=== PATIENT | female | born 1995 | race Caucasian/White ===

== ENCOUNTER → 2021-10-08 10:31 | Outpatient (CLI) | payer BC, SELFPAY ==
--- NOTE | 2021-10-08 | DI.RAD_ITS ---
Exam(s) XR TMJ BL EXAM: XR TMJ BL INDICATION: ABNL LUMP AT BASE OF LT SIDE TMJ, EVAL BONY ABNORMALITY. COMPARISON: No exams were available for comparison TECHNIQUE: 2D digital imaging was performed. Five views. FINDINGS: The exam was performed as a temporomandibular joint exam. This does not evaluate the submandibular r egion. There is no evidence of temporomandibular joint dislocation. There is normal range of motion . The teeth are unremarkable. No bony abnormalities are seen. IMPRESSION: Negative temporomandibular joints. DATA REPOSITORY: RADIATION DOSE DELIVERED:
== END ==
PROVIDERS: Visit Provider Physician Assistant Medical
DX: M26.69 Other specified disorders of temporomandibular joint (principal)
CPT/HCPCS: 70330

== ENCOUNTER 2021-10-08 18:33 | Outpatient (REF) | payer BC, SELFPAY | END 2021-10-08 18:34 | disposition home or self-care (01) | LOC: LBN 18:33 | PROVIDERS: Visit Provider Physician Assistant Medical ==

== ENCOUNTER 2021-12-22 19:54 | Outpatient (REF) | payer BC, SELFPAY | END 2021-12-22 19:55 | disposition home or self-care (01) | LOC: LBN 19:54 | PROVIDERS: Visit Provider Nurse Practitioner Family | DX: J02.9 Acute pharyngitis, unspecified (principal) | CPT/HCPCS: 87070 ==

== ENCOUNTER 2022-03-31 01:39 | Outpatient (CLI) | payer BC, SELFPAY ==
--- NOTE | 2022-03-31 07:45 | DI.US_ITS ---
Exam(s) US NEEDLE LOCAL OTHER WO RAD EXAM: US NEEDLE LOCAL OTHER WO RAD CLINICAL HISTORY: Left parotid mass,K11.8,ULTRASOUND GUIDED BX. COMPARISON: US US THYROID from 11/11/2021 TECHNIQUE: Ultrasound guidance was provided for ultrasound-guided biopsy of a left parotid gland mas s performed by the ENT surgeon.. Please see procedure report for details. Radiologist was not present for the study. FINDINGS: See procedure report for details. IMPRESSION: Ultrasound-guided localization for parotid gland mass. DATA REPOSITORY:
--- NOTE | 2022-03-31 11:28 | PAPNONF_PTH ---
PATIENT: Anastasia Roman LOC: [facility] U#:[id number] AGE/SX: 26/F ROOM: RE03/31/[address]: Yadiel Swanson MD : [id number] BED: DIS: 03/31/2022 SPEC #: [id number] RECD: 03/31/22 12:48 STATUS: [place] REQ #: [id number] YONI: 03/31/22 11:[address]: Yadiel Swanson [facility] Cytology RECD BY: Kena Gregory Tissues: 1 - BODY FLUID CYTO(NOT S/U/N/EM)[facility] Procedures: BODY FLUID CYTO(NOT SPU/UR/NIP/ENDOM)[facility] Comments: [id number] (PATH FNA CONSULT) (REFRIGERATED)
--- NOTE | 2022-03-31 12:01 | W.PROCNOTE ---
Date of service: 03/31/22 Time of Service: 12:01 Procedure Note Date of procedure: 03/31/22 Procedure: Ultrasound-guided FNA, left parotid mass, pathology present Surgeon/Proceduralist/Physician: Yadiel Swanson Procedure Diagnosis: Left parotid mass Procedure Indications: Patient with a left parotid mass discovered incidentally. Ultrasound most consistent with [place]'s versus pleomorphic adenoma. Options explained to the patient regarding further management. She elected to undergo FNA. Risks including bleeding infection, or damage to facial nerve were discussed. Consent was obtained. The below was then performed. Procedure Description: Ultrasound was used to localize a left-sided 2 cm parotid mass. The patient prepped and draped in appropriate fashion and 1% lidocaine with 1/100,000 epinephrine injected into the skin and subcutaneous tissues overlying the mass. A 25-gauge needle was then carefully introduced into the parotid mass, and multiple passes made through the parotid mass. Specimen was handed to pathology who reviewed it for cellular adequacy and felt that there was adequate cells and material to make the diagnosis. Wound was inspected for hemostasis and after ensuring adequate hemostasis, a sterile dressing was applied. The patient was allowed to sit and then stand and demonstrated no change in her vital signs and she was able to ambulate without difficulty. She will remove the bandage after 2 hours. She will call with any concerns or problems. She will call if she does not hear from me within 1 week. She had no further questions. She is comfortable with the plan.
== END 2022-03-31 01:59 ==
LOC: DI 01:40
PROVIDERS: Visit Provider Otolaryngology
DX: D11.0 Benign neoplasm of parotid gland (principal)
CPT/HCPCS: 10005; 76942; 88104

== ENCOUNTER 2022-10-28 03:45 | Outpatient (CLI) | payer BC, SELFPAY ==
[2022-10-28 13:42] LABS: HGB 13.6 g/dL (11.2-15.7); MCH 30.4 pg (27.0-33.0); MCHC 33.2 % (32.0-36.0); MCV 92 fL (80-95); MPV 9.6 fL (8.0-11.0); Platelet Count 254 10^3/uL (130-400); RBC 4.48 10^6/uL (3.93-5.22); RDW 11.4 % (11.7-14.6); RDW-SD 38.6 fL; WBC 4.84 10^3/uL (4.4-10.8)
[2022-10-28 15:49] LABS: ALT 16 U/L (14-59); AST 17 U/L (15-37); Albumin 4.2 g/dL (3.4-5.0); Alkaline Phosphatase 46 U/L (46-116); Anion Gap 6.5 mmol/L (3-11); BUN 17 mg/dL (7-18); Bilirubin, Total 0.7 mg/dL (0.2-1.0); CO2 28.5 mmol/L (21.0-32.0); CREATININE 0.8 mg/dL (0.55-1.02); Calcium 8.9 mg/dL (8.5-10.1); Calculated LDL 100 mg/dL (<100); Chloride 105 mmol/L (98-107); Cholesterol 154 mg/dL (<200); Estimated GFR 102.22 (mL/min/1.73m2); Glucose 120 mg/dL (74-106); HDL Cholesterol 42 mg/dL (40-60); Potassium 3.8 mmol/L (3.5-5.1); Sodium 140 mmol/L (136-145); TSH (W/Ref FT4) 1.07 uIU/mL (0.36-3.74); Total Protein 7.2 g/dL (6.4-8.2); Triglyceride 62 mg/dL (<150)
== END 2022-10-28 03:46 | disposition home or self-care (01) ==
LOC: LBO 03:46
PROVIDERS: Visit Provider Nurse Practitioner Women's Health
DX: Z01.419 Encounter for gynecological examination (general) (routine) without abnormal findings (principal); Z13.220 Encounter for screening for lipoid disorders; N92.6 Irregular menstruation, unspecified; R63.4 Abnormal weight loss
CPT/HCPCS: 36415; 80053; 80061; 85027; 84443

== ENCOUNTER 2024-01-05 18:02 | Outpatient (REF) | payer BC, SELFPAY ==
[2024-01-05 21:11] LABS: Abs Immature Grans 0.01 10^3/uL (0.0-0.06); Absolute Basophil Count 0.07 10^3/uL (0.0-0.2); Absolute Eosinophil Count 0.09 10^3/uL (0.0-0.7); Absolute Lymphocyte Count 2.46 10^3/uL (1.2-3.4); Absolute Monocyte Count 0.36 10^3/uL (0.1-0.8); Absolute Neutrophil Count 2.11 10^3/uL (1.2-6.7); Basophils % 1.4 %; Eosinophils % 1.8 %; HCT 39.8 % (36.0-46.0); HGB 13.8 g/dL (11.2-15.7); Immature Grans % 0.2 %; Lymphocytes % 48.2 %; MCH 31.2 pg (27.0-33.0); MCHC 34.7 % (32.0-36.0); MCV 90 fL (80-95); MPV 10.2 fL (8.0-11.0); Monocytes % 7.1 %; Neutrophils % 41.3 %; Platelet Count 251 10^3/uL (130-400); RBC 4.42 10^6/uL (3.93-5.22); RDW 11.1 % (11.7-14.6); RDW-SD 36.7 fL
[2024-01-05 21:21] LABS: ALT 18 U/L (14-59); AST 19 U/L (15-37); Albumin 4.2 g/dL (3.4-5.0); Alkaline Phosphatase 43 U/L (46-116); Anion Gap 6.9 mmol/L (3-11); BUN 15 mg/dL (7-18); Bilirubin, Total 0.89 mg/dL (0.2-1.0); CO2 27.1 mmol/L (21.0-32.0); CREATININE 0.8 mg/dL (0.55-1.02); Chloride 103 mmol/L (98-107); Estimated GFR 101.59 (mL/min/1.73m2); Glucose 85 mg/dL (74-106); Lipase 38 U/L (16-77); Potassium 3.6 mmol/L (3.5-5.1); Sodium 137 mmol/L (136-145); Total Protein 7.1 g/dL (6.4-8.2)
[2024-01-05 21:27] LABS: Calcium 9.3 mg/dL (8.5-10.1)
== END 2024-01-05 18:03 | disposition home or self-care (01) ==
LOC: NCHCN 18:02
PROVIDERS: Visit Provider Family Medicine
DX: R10.9 Unspecified abdominal pain (principal)
CPT/HCPCS: 80053; 83690; 85025

== ENCOUNTER 2024-04-07 01:26 | Outpatient (CLI) | payer BC, SELFPAY ==
[2024-04-07 11:00] LABS: Panorama Kit Sent via Fed Ex
[2024-04-07 11:16] LABS: Abs Immature Grans 0.02 10^3/uL (0.0-0.06); Absolute Basophil Count 0.04 10^3/uL (0.0-0.2); Absolute Eosinophil Count 0.04 10^3/uL (0.0-0.7); Absolute Lymphocyte Count 1.69 10^3/uL (1.2-3.4); Absolute Monocyte Count 0.33 10^3/uL (0.1-0.8); Absolute Neutrophil Count 5.47 10^3/uL (1.2-6.7); Basophils % 0.5 %; Eosinophils % 0.5 %; HCT 38.3 % (36.0-46.0); HGB 13.1 g/dL (11.2-15.7); Immature Grans % 0.3 %; Lymphocytes % 22.3 %; MCH 31.9 pg (27.0-33.0); MCHC 34.2 % (32.0-36.0); MCV 93 fL (80-95); MPV 9.3 fL (8.0-11.0); Monocytes % 4.3 %; Neutrophils % 72.1 %; Platelet Count 212 10^3/uL (130-400); RBC 4.11 10^6/uL (3.93-5.22); RDW 12.1 % (11.7-14.6); RDW-SD 41.6 fL; WBC 7.59 10^3/uL (4.4-10.8)
[2024-04-07 18:44] LABS: Hepatitis B Surface Ag Negative (Negative)
[2024-04-07 19:20] LABS: HIV-1/2 Ag & Ab Screen Negative (Negative)
[2024-04-07 19:33] LABS: Hepatitis C Ab w Rflx HCV PCR Negative (Negative)
[2024-04-10 11:27] LABS: Rubella IgG Ab (UVM) Positive (See Note)
[2024-04-10 11:29] LABS: Varicella IgG Antibody Positive (See Note)
[2024-04-10 15:05] LABS: Syphilis IgG w/Reflex Nonreactive (Nonreactive)
[2024-04-10 17:37] LABS: Specimen WB Whole Blood
[2024-04-26 23:48] LABS: Result Summary NEGATIVE; Specimen WB Whole Blood
== END 2024-04-07 01:27 | disposition home or self-care (01) ==
LOC: LBO 01:26
PROVIDERS: Advanced Practice Midwife; Visit Provider Advanced Practice Midwife
DX: Z34.91 Encounter for supervision of normal pregnancy, unspecified, first trimester
CPT/HCPCS: 36415; 81220; 81222; 81329; 86787; 86803; 86850; 86900; 86901; 87340; 87389; 85025; 86762; 86780

== ENCOUNTER 2024-04-07 09:21 | Outpatient (REF) | payer BC, SELFPAY ==
[2024-04-10 12:49] LABS: Chlamydia Result Negative (Negative); GC Result Negative (Negative)
== END 2024-04-07 09:22 | disposition home or self-care (01) ==
LOC: LBN 09:21
PROVIDERS: Visit Provider Advanced Practice Midwife
DX: Z34.91 Encounter for supervision of normal pregnancy, unspecified, first trimester (principal)
CPT/HCPCS: 87491; 87591; 87086

== ENCOUNTER 2024-07-24 03:18 | Outpatient (CLI) | payer BC, SELFPAY ==
[2024-07-24 13:48] LABS: HCT 36.9 % (36.0-46.0); HGB 12.1 g/dL (11.2-15.7); MCH 31.8 pg (27.0-33.0); MCHC 32.8 % (32.0-36.0); MCV 97 fL (80-95); MPV 9.2 fL (8.0-11.0); Platelet Count 209 10^3/uL (130-400); RBC 3.81 10^6/uL (3.93-5.22); RDW-SD 42.4 fL; WBC 7.95 10^3/uL (4.4-10.8)
[2024-07-24 14:04] LABS: Glucose,1 Hr (Glucola) 101 mg/dL (80-140)
== END 2024-07-24 03:19 | disposition home or self-care (01) ==
LOC: LBO 03:18
PROVIDERS: Visit Provider Advanced Practice Midwife
DX: Z34.92 Encounter for supervision of normal pregnancy, unspecified, second trimester (principal)
CPT/HCPCS: 36415; 82950; 85027

== ENCOUNTER 2024-08-16 01:54 | Outpatient (CLI) | payer BC, SELFPAY ==
--- NOTE | 2024-08-16 08:00 | DI.US_ITS ---
Exam(s) US OB ARIANNA WEIGHT EXAM: US OB ARIANNA WEIGHT CLINICAL HISTORY: growth + ARIANNA,MARGINAL INSERTION UMBILICAL CORD,o43.199. TECHNIQUE: Transabdominal obstetrical ultrasound was performed. COMPARISON: US US OB 2-3 TRIMESTER from 05/25/2024 FINDINGS: There is a single viable intrauterine gestation with cardiac activity identified-129 bpm The fetus is presently in breech position with spine pointing anteriorly. Amniotic fluid: There is a normal amount of amniotic fluid with an ARIANNA of 13.23cm. Placental location: The placenta is posterior and fundal/grade 2,with no evidence of placenta previa. Dating parameters place this at approximately 33 weeks and 1 day gestational age, implying ROLAND of October 03, 2024. BPD measures 34 weeks and 0 days HC measures 34 weeks and 2 days AC measures 32 weeks and 2 days FL measures 32 weeks and 1 day Estimated weight is 2004 gm-4 pounds, 7 ounces Fetus is at the 72nd percentile on the Hadlock scale. IMPRESSION:: Viable 3rd trimester gestation, as described above. Presently in breech position. Normal amount of amniotic fluid DATA REPOSITORY:
== END 2024-10-16 12:27 | disposition home or self-care (01) ==
LOC: DI 01:55 → OBS 10-16 12:07
PROVIDERS: Visit Provider Advanced Practice Midwife
DX: O43.193 Other malformation of placenta, third trimester (principal); Z3A.34 34 weeks gestation of pregnancy
CPT/HCPCS: 76816

== ENCOUNTER 2024-09-19 16:11 | Outpatient (REF) | payer BC, SELFPAY | END 2024-09-19 16:12 | disposition home or self-care (01) | LOC: LBN 16:11 | PROVIDERS: Visit Provider Advanced Practice Midwife | DX: Z34.93 Encounter for supervision of normal pregnancy, unspecified, third trimester (principal) | CPT/HCPCS: 87081 ==

== ENCOUNTER 2024-10-22 07:14 | Outpatient (CLI) | payer BC, SELFPAY ==
[2024-10-22 09:37] VITALS: BP 131/74; PULSE 72
[2024-10-22 10:00] VITALS: BP 131/74; PULSE 72; RESP 16; TEMP 36.6
--- NOTE | 2024-10-22 11:32 | W.OBNST ---
Date of service: 10/22/24 Time of Service: 11:32 NST Evaluation Reason for NST Reasons for Nonstress Test: POSTDATES Test and Monitor Explained Test/Monitor Explained: Test Explained, Monitor Explained and Patient Verbalized Understanding Vital Signs Blood Pressure: 131/74 Pulse: 72 Urine Results Urine Protein: Negative Urine Ketones: Negative Urine Glucose: Negative Urine Blood: Negative NST Information Date on Monitor: 10/22/24 Time on Monitor: 09:20 Date off Monitor: 10/22/24 Time off Monitor: 10:00 Total Time on Monitor: 40 NST Interventions: PO Hydration Contraction Frequency: 1 per 10 minutes, pt does not appreciate NST Evaluation Patient States Movement: Present FHR Baseline: 125 Variability: Moderate 6-25 bpm Accelerations: 15x15 Decelerations: None NST Results: Reactive Note Ultrasound Done: ARIANNA (postdates) Largest Vertical Pocket: 2.3 Total ARIANNA: 7.7 Other Pertinent Findings: Heart Rate (120), Presentation (LOP) and Placental Location (posterior) Coding for ARIANNA w/NST: Completed Exam. NST Note Note: Cvx 1-2/50% posterior and soft, LOP -3, intact membranes; Barton score=4 Membranes swept pt pt request Lengthy and detailed discussion of IOL for postdates, risks & benefits reviewed Pt emotional and tired, uncomfortable. Multiple options offered, cervical ripening described. Pt decided to return in 24 hrs for another membrane sweep, is undecided on admission for IOL Booked for 0900 tomorrow morning, possible IOL, repeat NST NST Reviewed and Verified by: Abeba Cartagena
[2024-10-22 11:33] VITALS: BP 131/74; PULSE 72
[2024-10-23 09:38] VITALS: BP 123/76; PULSE 75
== END 2024-10-22 11:18 | disposition other institution (70) ==
LOC: BCD 07:17 → OBS 10:15
PROVIDERS: Visit Provider Obstetrics & Gynecology
DX: O48.0 Post-term pregnancy (principal); Z3A.41 41 weeks gestation of pregnancy
CPT/HCPCS: 59025; G0378

== ENCOUNTER 2024-10-23 07:14 | Outpatient (CLI) | payer BC, SELFPAY ==
[2024-10-23 09:22] VITALS: BP 123/75; PULSE 75; TEMP 36.6
--- NOTE | 2024-10-23 11:34 | W.OBNST ---
Date of service: 10/23/24 Time of Service: 11:34 NST Evaluation Reason for NST Reasons for Nonstress Test: POSTDATES Gestational Age Gestational Age in Weeks and Days: 41 Weeks and 2Days Test and Monitor Explained Test/Monitor Explained: Test Explained, Monitor Explained and Patient Verbalized Understanding Vital Signs Blood Pressure: 123/75 Pulse: 75 Temperature: 97.9 F NST Information Date on Monitor: 10/23/24 Time on Monitor: 09:15 Date off Monitor: 10/23/24 Time off Monitor: 10:00 Total Time on Monitor: 45 NST Interventions: PO Hydration Contraction Frequency: q3-5 NST Evaluation Patient States Movement: Present FHR Baseline: 125 Variability: Moderate 6-25 bpm Accelerations: 15x15 Decelerations: None NST Results: Reactive Note Ultrasound Done: N/A. NST Note Note: Cvx unchanged at 1-2/50% posterior, vtx -3 Will return this afternoon for IOL via cervical ripening NST Reviewed and Verified by: Abeba Cartagena
[2024-10-23 11:35] VITALS: BP 123/75; PULSE 75; TEMP 36.6
== END 2024-10-23 10:30 | disposition other institution (70) ==
LOC: BCD 07:15 → OBS 09:21
PROVIDERS: Visit Provider Advanced Practice Midwife
DX: O48.0 Post-term pregnancy (principal); Z3A.41 41 weeks gestation of pregnancy
CPT/HCPCS: 59025

== ENCOUNTER 2024-10-23 18:15 | Inpatient (IN) | payer BC, SELFPAY ==
--- NOTE | 2024-10-23 17:32 | W.PM.OBHPL1 ---
Date of service: 10/23/24 Time of Service: 17:32 Assessment and Plan Assessment and plan (1) Encounter for induction of labor: Status: Acute Assessment and plan: A: 29 yo @ 41+2 wks IOL via cervical ripening for postdates, Patel score=4 GBS negative, increased risk for SD (primip postdates) and PPH (IOL process) Category 1 tracing P: Admit to L&D, draw CBC and T&S Will begin with misoprostel PO, plan to add trevino balloon OB-HPI Labor/Delivery History of Present Illness Reason for Visit: Induction Chief Complaint: Scheduled Induction of Labor Indication for Induction: Post Date. ROLAND Calculator Estimated Delivery Date Method Current WG Current Estimate 10/14/24 LMP (Certain) 41w 3d Other Estimates 10/15/24 Ultrasound #1 41w 2d History of Present Expected Delivery Route/Plan - CNM FOB/ - Jonathan Durant (1st child) BB yes to circ Desires unmedicated , use ball, shower, walking, tub GBS negative @ 36 wks Jonathan for support. prefers no induction Specific Issues/Plan 1. cfDNA low risk, SMA/CF carrier negative 2. Pap due 07/2024- pt desires to be done 3. pescetarian 4. Marginal cord insertion- 32 week growth US- ARIANNA 13, EFW 72 %ile. 5. RUQ pain - gallbladder sludge by US 01/2024, consider repeat if symptoms persist. Assessment: History Reviewed & Current Informed Consent Informed Consent: Induction of Labor and Risk,Benefits,Alternatives Discussed Review of Systems All systems reviewed & are unremarkable except as noted in HPI and below PFSH All Active Problems (Updated 10/23/24 @ 17:39 by Abeba Cartagena) Encounter for induction of labor (Acute) Marginal insertion of umbilical cord affecting management of mother (Acute) 1.6cm from placental margin @ 20wk GA (Acute) PMS (premenstrual syndrome) (Acute) anxiety and feels overwhelm Pleomorphic adenoma of parotid gland (Acute) Mass of left parotid gland (Acute) Medical History (Updated 10/23/24 @ 17:39 by Abeba Cartagena) Delayed menses Anxiety Surgical History Benign parotid tumor Removed Family History (Updated 04/07/24 @ 09:35 by Kyra Anthony CNM) Sister Hyperlipidemia Paternal Grandmother Diabetes T2DM Father Cancer Father Diabetes T1DM Social History Smoking/Tobacco Use Status: Never Second Hand Exposure: No Smoking risk assessment performed?: Yes Alcohol Intake: current Drug use: Never Substance use type: does not use Household members: spouse Sexually active: Yes Do you think of yourself as: straight/heterosexual Current gender identity: female What is your relationship status?: Panel score (0-1 are the most socially isolated patients): 1 What type of physical activity do you participate in: regular exercise Duration: 30-45 minutes/day Frequency: 5-6 times per week Seatbelt use: always Helmet use: Yes Drive intox or ride w/intox catshovel driver: No Do you feel safe at home: Yes Do you feel safe in your relationship?: Yes Female Reproductive History Menstrual Age of Menarche: 10 Duration of menses: 6-7 days control method: none History History 2 Para 0 Hx # Term Pregnancies 0 Multiple births 0 Hx # Pregnancies 0 Ectopic pregnancies 0 AB induced 1 Hx Number of Living Children 0 AB spontaneous 0 Past Pregnancies Del. Date GA/Weeks # Preg Succ Route Wgt Sex Labor Lgth Anesthesia Location Prov [facility] 11/04/23 7 No No Meds Allergies and Home Medications Allergies Allergy/AdvReac Type Severity Reaction Status Date / Time No Known Allergies Allergy Verified 10/19/24 14:14 Home Medications ?Medication ?Instructions ?Recorded ?Confirmed ?Type vitamin#30 30 mg iron-10 cap PO 10/27/23 10/19/24 History mg iron-folic acid 1 mg-omg3 capsule magnesium 250 mg tablet 250 mg PO DAILY PRN 05/05/24 10/19/24 History Exam Physical Exam Vital Signs Reviewed: Yes Constitutional Constitutional: no acute distress, average body habitus and cooperative Detailed Labor and Delivery Exam Dilation: 1.5 Effacement (%): 50 station: -3 Position: LOP Cervix position: posterior Consistency: medium PATEL Score(Cervical Ripeness Score): 4 Amniotic Membrane Status: Intact Monitor Mode: External Contraction Frequency(min): q3-5 Contraction Intensity: Mild Fetus A Heart Rate Baseline: 135 Monitor Accelerations: 15 X 15 Monitor Decelerations: None Variability: Moderate (6-25 BPM) Categories: Category I Est. Weight: 8 lb 4.277 oz Est. Weight: 3750 gms HEENT Exam HEENT Exam: Normal Neck Exam Neck Exam: Normal Chest/Brest/Axilla Exam Chest Exam: Normal Breast Exam Breast Exam: Not Done Respiratory Exam Respiratory Exam: Normal Cardiovascular Exam Cardiovascular Exam: Normal Abdominal Exam Abdominal Exam: Normal (gravid, nontender) Rectal Exam Rectal Exam: Normal Exam Exam: Normal Extremities Exam Extremities Exam: Normal Back/Spine/Pelvis Exam Back Exam: Normal Pelvis Adequate: Yes Skin Exam Skin Exam: Normal Neurological Exam Neurological Exam: Normal Psychiatric Exam Psychiatric Exam: Normal Results Results Group Beta Strep: Negative Blood Type: A+ Rubella Status: Immune Varicella Immunity: Immune Risk Assessment Risk for Shoulder Dystocia Historical/Initial OB: NEGATIVE FOR: Pelvic Abnormality, Pre- BMI>30, Previous Shoulder Dystocia or Previous Macrosomia 36 Weeks: NEGATIVE FOR: Current Gestational DM, EFW>4500gms or Maternal Weight Gain>40lbs 40 Weeks: POSTIVE FOR: Post Dates; NEGATIVE FOR: EFW> 4500 gms or Maternal Weight Gain >40lb Increased Risk?: No Delivery Plan @ 36wks: Delivery Plan @ 40 wks: Risk for Pre-Eclampsia Yes, if one or more: NEGATIVE FOR: Hx Pre-E/Gest HTN, Chronic HTN, Multiple Gestation, Pre-gestational DM, Renal Disease, Systemic Lupus or APA Syndrome Yes, if 2 or more: POSITIVE FOR: Nulliparity; NEGATIVE FOR: Age>= 35 yrs, >10yr btwn pregnancies, BMI>30, ethinicty, Mother/Sister w/ Pre-E or Previous IUGR Risk for Post- Hemorrhage Initial: NEGATIVE FOR: Multiple Gestation, Previous PPH, Known Clotting Deficiency, Grand Multiparity or Anticoagulation 36 Weeks: NEGATIVE FOR: Anemia, hgb<10, Low platelets(thrombocytopenia), Gestational HTN or Pre-E, Polyhydraminios or EFW>4500gms 40 Weeks: NEGATIVE FOR: Anemia, hgb<10, Low platelets (thrombocytopenia), Gestation HTN or Pre-E, Polyhydraminios or EFW>4500gms Risks Reviewed Risks Reviewed Upon Admission: Yes
[2024-10-23 18:00] VITALS: BP 123/66; PULSE 59; RESP 16; TEMP 36.6
[2024-10-23 18:21] LABS: HCT 38.6 % (36.0-46.0); HGB 12.7 g/dL (11.2-15.7); MCH 30.0 pg (27.0-33.0); MCHC 32.9 % (32.0-36.0); MCV 91 fL (80-95); MPV 10.4 fL (8.0-11.0); Platelet Count 206 10^3/uL (130-400); RBC 4.23 10^6/uL (3.93-5.22); RDW 13.3 % (11.7-14.6); RDW-SD 43.8 fL; WBC 9.90 10^3/uL (4.4-10.8)
[2024-10-23 18:24] VITALS: BP 123/66; PULSE 59
[2024-10-23] MEDS: miSOPROStol 25 MCG TAB PO ×2 (18:29→22:43)
[2024-10-23 18:30] VITALS: BP 123/66; PULSE 59; RESP 16; TEMP 36.6
[2024-10-23 19:38] VITALS: BP 114/77; PULSE 71
[2024-10-23 19:45] VITALS: BP 114/77; PULSE 71; RESP 18; TEMP 36.7
[2024-10-23 23:21] VITALS: BP 111/70; PULSE 64
[2024-10-24] VITALS (16 sets, daily range): BP systolic 117–145; BP diastolic 68–84; PULSE 54–76; RESP 16–18; TEMP 36.7–37.2; O2SAT 91–98
--- NOTE | 2024-10-24 08:30 | W.PM.OBNL1 ---
Date of service: 10/24/24 Time of Service: 08:30 Informed Consent Informed Consent: Induction of Labor and Risk,Benefits,Alternatives Discussed Pelvic Exam Dilation: 2 Effacement (%): 60 station: -3 Cervix Position: posterior Consistency: soft Contractions Monitor Mode: External Contraction Frequency(min): q3-5 Intensity: Mild Fetus A Monitor: External (US) Heart Rate Baseline: 135 Variability: Moderate (6-25 BPM) Categories: Category I Accelerations: Present Decelerations: None Amniotic Membrane Status: Intact Assessment and Plan Assessment and plan (1) Encounter for induction of labor: Status: Acute Assessment and plan: A: Received 25 mcg misoprostel PO yesterday evening Pt opted to delay trevino balloon until this morning Category 1 tracing; pt supported by FOB, tolerating PO intake well P: 18 g trevino inserted in cervix to lower uterine segment, 60 ml sterile saline in balloon 3rd dose of 25 mcg misoprostel PO given, plan 4th dose in 4 hrs unless contraindicated d/t labor pattern Continue IOL for postdates via cervical ripening Objective Temp Pulse Resp BP Pulse Ox 98.8 F 64 18 122/80 97 10/24/24 13:53 10/24/24 13:53 10/24/24 13:53 10/24/24 13:53 10/24/24 13:53 Laboratory Results WBC 9.90 10^3/uL (4.4-10.8) 10/23/24 18:08 RBC 4.23 10^6/uL (3.93-5.22) 10/23/24 18:08 Hgb 12.7 g/dL (11.2-15.7) 10/23/24 18:08 Hct 38.6 % (36.0-46.0) 10/23/24 18:08 MCV 91 fL (80-95) 10/23/24 18:08 MCH 30.0 pg (27.0-33.0) 10/23/24 18:08 MCHC 32.9 % (32.0-36.0) 10/23/24 18:08 RDW 13.3 % (11.7-14.6) 10/23/24 18:08 Plt Count 206 10^3/uL (130-400) 10/23/24 18:08 MPV 10.4 fL (8.0-11.0) 10/23/24 18:08 ABO/Rh A Positive 10/23/24 18:08 Antibody Screen NEGATIVE 10/23/24 18:08 Vital Signs Reviewed: Yes Subjective Interval history since last seen: Increased sensation of lower abd cramps last night, was able to sleep, ready to continue IOL process this morning.
[2024-10-24] MEDS: miSOPROStol 25 MCG TAB PO ×2 (09:45→13:56)
[2024-10-24] MEDS: Acetaminophen 500 MG TAB 1000 MG PO (14:15)
--- NOTE | 2024-10-24 18:15 | W.PM.OBNL1 ---
Date of service: 10/24/24 Time of Service: 18:00 Informed Consent Informed Consent: Risk,Benefits,Alternatives Discussed and Other (AROM) Pelvic Exam Dilation: 6 Effacement (%): 70 station: -3 Contractions Monitor Mode: External Contraction Frequency(min): q2-4 Intensity: Moderate Fetus A Monitor: External (US) Heart Rate Baseline: 145 Variability: Moderate (6-25 BPM) Categories: Category I Accelerations: Present Decelerations: None Assessment and Plan Assessment and plan (1) Encounter for induction of labor: Status: Acute Assessment and plan: A: Miranda bulb in vaginal vault, easily removed Cvx @ 6/70%, vtx LOP -3, fluid clear, cat 1 tracing Pt coping well with contractions, consent for AROM given P: AROM completed, pt plans use of tub, ambulation, position changes Effective support from FOB Objective Vital Signs Reviewed: Yes
--- NOTE | 2024-10-24 21:50 | W.PM.OBNL1 ---
Date of service: 10/24/24 Time of Service: 21:50 Pelvic Exam Dilation: 7 Effacement (%): 90 station: -2 Position: LOP Contractions Monitor Mode: Palpation Contraction Frequency(min): q2-3 Intensity: Moderate/Strong Fetus A Monitor: Doppler Heart Rate Baseline: 150 FHR Rhythm: Regular Characteristics: Normal Assessment and Plan Assessment and plan (1) Encounter for induction of labor: Status: Acute Assessment and plan: A: active labor, coping well and effectively supported P: Will try nitrous, continue comfort measures at will Expentant management, intermittent auscultation Objective Vital Signs Reviewed: Yes Subjective Interval history since last seen: pt breathing through contractions, using visualization, meditation, ocean sounds, changing positions often on floor mat, soaked in the tub for while, emesis x1 and feels pelvic pressure, requests nitrous inhalant
[2024-10-25] VITALS (195 sets, daily range): BP systolic 108–150; BP diastolic 55–94; PULSE 71–153; RESP 13–31; TEMP 36.8–37.8; O2SAT 92–100; BMI 27.4
[2024-10-25] MEDS: Lactated Ringers 250 ML 500 ML IV (00:03)
--- NOTE | 2024-10-25 00:11 | W.PM.OBNL1 ---
Date of service: 10/25/24 Time of Service: 00:11 Informed Consent Informed Consent: Regional Anesthesia and Risk,Benefits,Alternatives Discussed Pelvic Exam Dilation: 7 Effacement (%): 100 station: -2 Contractions Contraction Frequency(min): q2-4 (doubling) Intensity: Moderate/Strong Fetus A Monitor: Doppler Heart Rate Baseline: 140 FHR Rhythm: Regular Characteristics: Normal Amniotic Membrane Status: Ruptured Assessment and Plan Assessment and plan (1) Encounter for induction of labor: Status: Acute Assessment and plan: A: Need for pain management in active labor Pt requests epidural anesthesia Progression to 7/100% vtx -2 after AROM Voiding qs, calm and coping well P: [employer] SAL[employer]GER paged, IV initiated and bolus infusing Will encourage rest once pt is more comfortable Objective Vital Signs Reviewed: Yes Objective Narrative Objective Narrative: Normotensive, afebrile Subjective Interval history since last seen: pt requests epidural anesthesia
--- NOTE | 2024-10-25 00:14 | W.ANESPRE ---
General Info Date of Service Date Performed: 10/25/24 Height: 5 ft 6 in Weight: 77.111 kg Body Mass Index (BMI): 27.4 Meds Allergies and Home Medications Allergies Allergy/AdvReac Type Severity Reaction Status Date / Time No Known Allergies Allergy Verified 10/19/24 14:14 Home Medication ?Medication ?Instructions ?Recorded vitamin#30 30 mg iron-10 cap PO 10/27/23 mg iron-folic acid 1 mg-omg3 capsule magnesium 250 mg tablet 250 mg PO DAILY PRN 05/05/24 Current Visit Medications: Current Medications Generic Name Dose Route Start Last Admin Trade Name Freq PRN Reason Stop Dose Admin Bupivacaine HCl 30 ml 10/25/24 00:15 Bupivacaine 0.5% Pres-Free 30 Ml Vial IJ DIRECTED JACKELINE Ephedrine Sulfate 5 mg 10/25/24 00:03 Ephedrine 50 Mg/Ml Vial IVP DIRECTED PRN Fentanyl 100 mcg 10/25/24 00:01 Fentanyl 100 Mcg Patch TD 10/25/24 00:02 NOW ONE Fentanyl/Ropivacaine 200 ml 10/24/24 23:45 Fentanyl/Ropivacaine 2 Mcg/Ml And 0.1% 200 Ml [place] EP DIRECTED JACKELINE Ringer's Solution 250 mls @ 500 mls/hr 10/25/24 00:03 IV 10/25/24 00:32 BOLUS ONE Ringer's Solution 500 mls @ 500 mls/hr 10/25/24 00:03 IV 10/25/24 01:02 BOLUS ONE Ringer's Solution 1,000 mls @ 125 mls/hr 10/25/24 00:15 IV INFUSION [facility] Misoprostol 25 mcg 10/23/24 18:00 10/24/24 14:03 Misoprostol 25 Mcg Tab PO Not Given Q4H [facility] Naloxone HCl 0 mg 10/25/24 00:03 Naloxone 0.4 Mg/Ml Vial IVP DIRECTED PRN Terbutaline Sulfate 0.25 mg 10/23/24 17:28 Terbutaline 1 Mg/Ml Vial SC PRN PRN PFSH Active Problems Active Problems: Problem Status Onset Code Encounter for induction of labor Acute Z34.90 Marginal insertion of umbilical cord affecting management of mother Acute O43.199 Acute Z34.90 PMS (premenstrual syndrome) Acute N94.3 Pleomorphic adenoma of parotid gland Acute D11.0 Mass of left parotid gland Acute K11.8 Medical History Medical History (Updated 10/23/24 @ 17:39 by Abeba Cartagena) Delayed menses Anxiety Surgical History Surgical History Benign parotid tumor Removed Tobacco Smoking/Tobacco Use Status: Never Passive smoking exposure: No Second hand exposure: No Alcohol Alcohol Intake: current Substance Use Substance use: Never Substance use type: does not use Prental History History 2 Para 0 Hx # Term Pregnancies 0 Multiple births 0 Hx # Pregnancies 0 Ectopic pregnancies 0 AB induced 1 Hx Number of Living Children 0 AB spontaneous 0 Past Pregnancies Del. Date GA/Weeks # Preg Succ Route Wgt Sex Labor Lgth Anesthesia Location Prov Complic 11/04/23 7 No No Vital Signs and Lab Results Vital Signs Most Recent Vital Signs in EMR: Most Recent Vital Signs Temp Pulse Resp BP Pulse Ox 37.1 C 61 18 121/76 91 L 10/24/24 20:15 10/24/24 23:32 10/24/24 20:15 10/24/24 23:32 10/24/24 15:59 Lab Results 10/23/24 18:08 Blood Type / Crossmatch: Antibody Screen NEGATIVE 10/23/24 Complete Blood Count: WBC, (4.4-10.8) 9.90 10^3/uL 10/23/24, 18:08 RBC, (3.93-5.22) 4.23 10^6/uL 10/23/24, 18:08 Hgb, (11.2-15.7) 12.7 g/dL 10/23/24, 18:08 Hct, (36.0-46.0) 38.6 % 10/23/24, 18:08 Plt Count, (130-400) 206 10^3/uL 10/23/24, 18:08 Anesthesia Assessment and Plan Anesthesia History Personal History: No History of Anesthesia Complications Family History: No Family History of Anesthesia Complications Exercise Tolerance Exercise Tolerance: Metabolic Equivalents>4 Pertinent Negatives Pertinent Negatives: No Major Cardiovascular Symptoms or Complaints and No Major Pulmonary Symptoms or Complaints Cardiac & Pulmonary Exam Cardiac Exam: Normal S1/S2 Heart Sounds Pulmonary Exam: Clear Bilateral Breath Sounds Implantable Cardiac Device Does patient have a Pacemaker or an ICD?: No Airway Exam Known Difficult Airway: No Mallampati Class: 2 Mouth Opening: Normal (> 3cm) Thyromental Distance: Greater than 3 cm Neck Range of Motion: Full ROM Neck Circumference: Normal Teeth Condition: Normal Dentition ASA Classification ASA Score: ASA 2 Emergency Case?: No NPO Status NPO Status: Full Stomach Status Status: Confirmed Anesthesia Plan Resuscitation Status: Full Code Anesthesia Technique: Labor Epidural Airway Planned: Natural Airway Monitors Used: Standard Monitors
[2024-10-25] MEDS: fentaNYL 100 MCG/2 ML VIAL IVP ×4 (00:19→10:22)
[2024-10-25] MEDS: Bupivacaine 0.25% Pres-Free 10 ML VIAL (00:21)
[2024-10-25] MEDS: FentaNYL/ROPIvacaine 2 mcg/ml and 0.1% 200 ML CADD Cassette EP (01:04)
--- NOTE | 2024-10-25 01:20 | ANES.NEUR_ITS ---
Epidural/Spinal Catheter Date Performed: 10/25/24 Procedure Start: 00:30 Procedure Stop: 01:34 Requesting Provider: Abeba Cartagena Procedure Location: Obstetrics Reason Performed: Labor Epidural Standard Monitors Applied: Blood Pressure, SpO2 and See EMR for corresponding vital signs Patient Position: Sitting Sedation Given (Indicate Dose Given): No Sedation given Patient Mental Status: Awake Sterility: Hand Hygiene, Surgical Cap, Surgical Mask, Sterile Gloves, Sterile Drape/Sheet and Chlorhexidine Procedure Location: L4-L5 Interspace Epidural Needle: Tuohy 18 Gauge Needle Length: 3.5 Inch Needle Approach: Midline Epidural Procedure: Skin Prepped, Sterile Drape Placed, 1% Lidocaine to skin and subcutaneous tissue with 25G needle, Tuohy Needle placed, MARKUS to Saline Used, Epidural Catheter Placed, Negative Heme, Negative CSF Flow and Tuohy Needle Removed Catheter Placed?: Catheter Placed Test Dose (Indicate Dose Given): 3ml 1.5% Lidocaine with 1:200K Epinephrine Given and Negative Test Dose Loss of Resistance Depth (cm): 6 Catheter depth at skin (cm): 12 Dressing: [place] Dressing Placed and Mastisol Used Epidural Provider Bolus (Indicate Dose Given): Total bolus dose given in 3-5 ml divided doses and Total Bupivacaine 0.25% Given (ml) Dose:: 5 ml Additives (Indicate Dose Given ): Fentanyl PF Dose:: 100 mcg Infusion Medication: Medication Infusion Began Medication Infusion: Ropivacaine 0.1% with Fentanyl 2mcg/ml (@0104) Maintenance Infusion Rate (ml/hour): 8 PCEA Bolus Dose (ml): 3 Post Procedure Pain score (0-10): 0 Block Level: N/A Paresthesia: Left Paresthesia Duration: Transient Ultrasound: Not Used Number of Attempts (See previous attempts in note section): 3 Procedure Tolerated: No Complications and Patient tolerated well Procedure Outcome: Successful Procedure Comment:: First attempt at L3-4 bone contacted despite repositioning. Second attempt at L2-3 unable to get a good bounce with MARKUS syringe so decided to move to a lower interspace. Third attempt successful at L4-5 with some minimal return of clear fluid on aspiration, most likely saline from previous attempts. Test dose negative, bolus dose given in small increments with no adverse effects. Good leg strength amelie and BP stable with no current concerns for wet tap. RNYeni, and Legal Billing Coordinator, Ellen, both informed to closely monitor for any dense block or BP changes. Performed By: Kyra Ken
--- NOTE | 2024-10-25 02:31 | W.PM.OBNL1 ---
Date of service: 10/25/24 Time of Service: 02:31 Pelvic Exam Dilation: 8 Effacement (%): 100 station: +1 Position: ADAM Contractions Monitor Mode: External Contraction Frequency(min): q4 Intensity: Moderate/Strong Fetus A Monitor: Internal (FSE) Heart Rate Baseline: 150 Variability: Minimal (1-5 BPM) Categories: Category II Accelerations: Present Decelerations: Early and Late (question of lates, resolved with position change) Amniotic Membrane Status: Ruptured Assessment and Plan Assessment and plan (1) Encounter for induction of labor: Status: Acute Assessment and plan: A: effective regional anesthesia period of cat 2 tracing followed by resolution to cat 1 after 500 ml IV bolus, position change, FSE applied pt dozing and relaxed descent and rotation palpable P: Monitor tracing and progress closely Anticipate Dr. Robbi SHORE available for consult as needed Objective Vital Signs Reviewed: Yes Objective Narrative Objective Narrative: Pt resting well after epidural placement Contractions continue q 4 minutes, lasting 2 minutes Periods of moderate variability interspersed with periods of minimal variability Question of late decels which resolved with position change from lateral to semi-fowlers FSE placed with pt consent, cvx 8/100, head descent to +1, rotated to ADAM BP 129/66, afebrile Subjective Interval history since last seen: Pt states she is much more comfortable, very sleepy.
--- NOTE | 2024-10-25 05:29 | PGE_ITS ---
Date of service: 10/25/24 Time of Service: 05:29 Informed Consent Informed Consent: Regional Anesthesia and Risk,Benefits,Alternatives Discussed Pelvic Exam Dilation: 9.5 (anterior lip) station: +2 Contractions Monitor Mode: External Contraction Frequency(min): Q2-4 Intensity: Moderate/Strong Fetus A Monitor: Internal (FSE) Heart Rate Baseline: 160 Variability: Minimal (1-5 BPM) (interspersed with periods of moderate variability) Categories: Category II Accelerations: Present Decelerations: Late (at 0500) Recurrence: Intermittent (seen at 0300 then again at 0500) Amniotic Membrane Status: Ruptured Amount: small Assessment and Plan Assessment and plan (1) Slow progress in first stage of labor: Status: Acute (2) Encounter for induction of labor: Status: Acute Assessment and plan: A: Was 8/100% with descent to +1 after epidural @ 0130 4 hrs later is anterior lip at +1/+2 Late decels x2 which became prolonged (x2-3 minutes) at 0300 and 0500 Periods of min variability and increased baseline to 165 P: Dr. Culp notified of pt status, is en route to evaluate pt & review tra cing Discussed with pt the possibility of c/s if fetus does not tolerate labor (3) Category II heart rate tracing during labor and delivery: Status: Acute Objective Vital Signs Reviewed: Yes Subjective Interval history since last seen: Pt remains comfortable, able to change positions well, denies pelvic or rectal pressure, Was able to sleep for a brief period. Discussed slow progression of dilation through the night and concerns about FHT tracing, pt verbalizes understanding and states she is ready to deliver by c/s if recommended.
--- NOTE | 2024-10-25 06:51 | OBCE_ITS ---
Date of service: 10/25/24 Time of Service: 06:51 Assessment and Plan Assessment and plan (1) : Status: Acute Assessment and plan: 29-year-old 2 para 0-0-1-0 at 41 weeks and 3 days with a known marginal cord insertion. (2) Encounter for induction of labor: Status: Acute Assessment and plan: Labor induction initially with cervical ripening via misoprostol, followed by Miranda balloon catheter and artificial rupture of membranes. Patient currently with epidural and engaged in the second stage of labor. (3) Category II heart rate tracing during labor and delivery: Status: Acute Assessment and plan: Intermittent category 2 tracing. Currently category 2 with pushing. Appropriate parties aware of second stage progress including anesthesia, OR, pediatrics if necessary. At this point, reassuring to proceed with the second stage. Will monitor closely. The risk, benefits, and alternatives of a possible were discussed with the patient and she would like to at this point attempt a vaginal but is very aware that if there is intolerance of labor and pushing, would be the next step. (4) Marginal insertion of umbilical cord affecting management of mother: Status: Acute History of Present Illness History of Present Illness Chief Complaint: Labor, category 2 tracing Narrative: Patient is a 29-year-old female prima gravid who had care throughout her by her midwifery service. She is a 29-year-old 2 para 0-0-1-0 now at 41 weeks and 3 days. She had a labor induction for postdates. Group B strep was negative. complexity is marginal cord insertion. She had appropriately grown fetus. Initially, she received cervical ripening with misoprostol, followed by a Miranda balloon with misoprostol. Upon removal of her Miranda balloon catheter she had artificial rupture membranes for clear fluid at 1800 hrs. on 10/24/2024. She had slow but relatively steady progress for cervical dilation and descent. She received an epidural for pain control. Throughout the course of her labor, baby had category 1 tracing with occasional category 2 tracing due to prolonged variable decelerations. These resolved with the usual modalities of position change, fluids. I was called to see the patient this morning due to category 2 strip and anterior lip. I do lengthy conversation with the patient and her regarding the progress of labor. At this point, cervical exam revealed vertex at a +1 station with a very scant rim of an anterior lip of the cervix with no edema noted. There was no At present. In light of this, I felt it reasonable to proceed with the second stage of labor. Patient feels motivated for vaginal , but is also understanding of the possibility of delivery. The risk, benefits, and alternatives of were discussed with the patient. Anesthesia was notified. Pediatrics was notified. OR was notified. This would all be for the possibility of need for operative delivery. Consults Consult date: 10/25/24 Requesting physician: Abeba Cartagena Review of Systems All systems reviewed & are unremarkable except as noted in HPI and below Eyes Eyes: Reports as per HPI and Reports system reviewed and no additional complaints, except as documented ENT Ears, Nose, Mouth, and Throat: Reports system reviewed and no additional complaints, except as documented and Reports as per HPI Cardiovascular Cardiovascular: Reports system reviewed and no additional complaints, except as documented, Denies chest pain and Denies irregular heart rhythm Respiratory Respiratory: Reports system reviewed and no additional complaints, except as documented, Denies chest congestion and Denies cough Gastrointestinal Gastrointestinal: Reports system reviewed and no additional complaints, except as documented Genitourinary Genitourinary: Reports system reviewed and no additional complaints, except as documented Neurologic Neurologic: Reports system reviewed and no additional complaints, except as documented PFSH All Active Problems (Updated 10/25/24 @ 05:54 by Abeba Cartagena) Category II heart rate tracing during labor and delivery (Acute) Slow progress in first stage of labor (Acute) Encounter for induction of labor (Acute) Marginal insertion of umbilical cord affecting management of mother (Acute) 1.6cm from placental margin @ 20wk GA (Acute) PMS (premenstrual syndrome) (Acute) anxiety and feels overwhelm Pleomorphic adenoma of parotid gland (Acute) Mass of left parotid gland (Acute) Medical History (Updated 10/25/24 @ 05:54 by Abeba Cartagena) Delayed menses Anxiety Surgical History Benign parotid tumor Removed Family History (Updated 04/07/24 @ 09:35 by Kyra Anthony CNM) Sister Hyperlipidemia Paternal Grandmother Diabetes T2DM Father Cancer Father Diabetes T1DM Social History Smoking/Tobacco Use Status: Never Second Hand Exposure: No Smoking risk assessment performed?: Yes Alcohol Intake: current Drug use: Never Substance use type: does not use Household members: spouse Sexually active: Yes Do you think of yourself as: straight/heterosexual Current gender identity: female What is your relationship status?: Panel score (0-1 are the most socially isolated patients): 1 What type of physical activity do you participate in: regular exercise Duration: 30-45 minutes/day Frequency: 5-6 times per week Seatbelt use: always Helmet use: Yes Drive intox or ride w/intox speedboat driver: No Do you feel safe at home: Yes Do you feel safe in your relationship?: Yes Female Reproductive History Menstrual Age of Menarche: 10 Duration of menses: 6-7 days control method: none History History 2 2 Para 0 Hx # Term Pregnancies 0 Multiple births 0 Hx # Pregnancies 0 Ectopic pregnancies 0 AB induced 1 Hx Number of Living Children 0 AB spontaneous 0 Past Pregnancies Del. Date GA/Weeks # Preg Succ Route Wgt Sex Labor Lgth Anesth esia Location [facility] 11/04/23 7 No No Exam Const General: cooperative, healthy appearing, no acute distress and other (Tired) Nutritional Appearance: average body habitus HENMT Head: normal to inspection Neck Neck: normal visual inspection Resp Effort & Inspection: normal respiratory effort Cardio Rate: tachycardic Rhythm: regular rhythm Other: Cervical exam, fully dilated, +1 station, NARESH presentation, no caput or significant molding. Results Last Vital Signs Temp 99.4 F 10/25/24 05:56 Pulse 153 H 10/25/24 06:49 Resp 18 10/25/24 05:56 BP 134/57 L 10/25/24 06:49 Pulse Ox 92 10/25/24 06:26 Labs 10/23/24 18:08
--- NOTE | 2024-10-25 08:10 | W.PM.OBNL1 ---
Date of service: 10/25/24 Time of Service: 08:10 Informed Consent Informed Consent: Regional Anesthesia and Risk,Benefits,Alternatives Discussed Fetus A Heart Rate Baseline: 15 Presentation: Cephalic Variability: Moderate (6-25 BPM) Categories: Category II Decelerations: Variable Assessment and Plan Assessment and plan (1) : Status: Acute (2) Marginal insertion of umbilical cord affecting management of mother: Status: Acute (3) Encounter for induction of labor: Status: Acute (4) Category II heart rate tracing during labor and delivery: Status: Acute Assessment and plan: Category 2 heart rate tracing. (5) Arrested labor: Status: Acute Assessment and plan: Category 2 heart rate tracing, despite good maternal effort and second stage with arrest of descent. Patient will proceed to primary . She will have Ancef 2 g and Zithromax. She has pneumatic compression stockings for DVT prophylaxis and a Miranda catheter inserted. Risk-benefit alternatives have been discussed. Objective Temp Pulse Resp BP Pulse Ox 99.1 F 141 H 18 113/57 L 92 10/25/24 07:37 10/25/24 07:53 10/25/24 05:56 10/25/24 07:53 10/25/24 06:26 Laboratory Results WBC 9.90 10^3/uL (4.4-10.8) 10/23/24 18:08 RBC 4.23 10^6/uL (3.93-5.22) 10/23/24 18:08 Hgb 12.7 g/dL (11.2-15.7) 10/23/24 18:08 Hct 38.6 % (36.0-46.0) 10/23/24 18:08 MCV 91 fL (80-95) 10/23/24 18:08 MCH 30.0 pg (27.0-33.0) 10/23/24 18:08 MCHC 32.9 % (32.0-36.0) 10/23/24 18:08 RDW 13.3 % (11.7-14.6) 10/23/24 18:08 Plt Count 206 10^3/uL (130-400) 10/23/24 18:08 MPV 10.4 fL (8.0-11.0) 10/23/24 18:08 ABO/Rh A Positive 10/23/24 18:08 Antibody Screen NEGATIVE 10/23/24 18:08 Subjective Interval history since last seen: Patient has been pushing for approximately 2 hours. She has arrest of descent. Intermittently, category 2 strip during pushing. With a small amount of descent, episode of prolonged deceleration which resolved with position change. In light of her arrest of descent during the second stage of labor, patient consents to primary . The risk, benefits, and alternatives have all been explained to the patient including risk of infection, bleeding, injury to surrounding organs, risk of anesthesia. She will receive Ancef 2 g and Zithromax 500 mg for surgical site infection prophylaxis she has pneumatic compression stockings and a Miranda catheter. She will be taken to the operating suite for her procedure. Anesthesia, OR, pediatrics all aware. Results Hemoglobin/Hematocrit: Hgb 12.7 g/dL (11.2-15.7) 10/23/24 18:08 Hct 38.6 % (36.0-46.0) 10/23/24 18:08
[2024-10-25] MEDS: Lactated Ringers 1,000 ML 30 ML IV (08:42)
[2024-10-25] MEDS: ceFAZolin 2 GM/50 ML BAG IVPB (08:51)
[2024-10-25] MEDS: AZITHROMYCIN 500 MG in Normal Saline 250 ML 250 MG IVPB (08:51)
--- NOTE | 2024-10-25 09:10 | PLAC_PTH ---
PATIENT: Anastasia Roman LOC: OBS U#:[id number] AGE/SX: 29/F ROOM: OBS.300 RE10/23/[address]: Abeba Cartagena CNM : 1995 BED: A DIS: 10/28/2024 SPEC #: [id number] RECD: 10/25/24 12:38 STATUS: ENT REQ #: [id number] YONI: 10/25/24 09:[address]: Jacqueline Peralta DEPT: Surgical Specimen RECD BY: Kena Gregory ENTERED: 10/25/24 12:39 SP TYPE: PLAC OTHR DR: Abeba Cartagena CNM Tissues: 1 - PLACENTA (3RD TRIMESTER) Procedures: GROSS AND MICRO LEVEL 5 Comments: (CANCELED PER IKER @ [facility] & JACQUELINE PERALTA)
--- NOTE | 2024-10-25 09:52 | W.PM.OBCSECT ---
Date of service: 10/25/24 Time of Service: 09:52 Operative Note Operative Note Delivery Method: Unscheduled STAT: No and Primary [id number]>[id number] Weeks: Yes DATE OF PROCEDURE: 10/25/24 PRE-OP DIAGNOSES: Arrest of descent POST-OP DIAGNOSES: same PROCEDURE: Primary low-transverse section SURGEON: Jacqueline Culp Assisting Surgeon: Jaye Ivy Anesthesia: GETA and spinal Estimated blood loss (mL): 1,400 Pathology: other (Placenta) Patient was transported to: PACU Patient's condition: stable Indications: Arrest of descent after approximately 2 hours of maternal pushing efforts. Category 2 heart rate tracing. Findings: Delivered a viable male infant. Normal tubes, ovaries, uterus. Extension of the uterine incision to the right. Procedure Description: Due to arrest of descent, decision was made for primary . Risk benefits and alternatives were discussed with the patient in full informed consent had previously been obtained. She was taken the operating suite with an IV running. Her previous epidural that was placed was removed. She had pneumatic compression stockings for DVT prophylaxis. She received Ancef, 2 g and Zithromax, 500 mg for surgical site infection prophylaxis. Miranda catheter had been previously inserted. Patient sat upright for spinal anesthetic. She was then placed in dorsal supine position with leftward tilt. heart tones were ascertained at 150 post spinal placement. She had a vaginal preparation in addition to her abdominal preparation, and pushing upward on the vertex to disengage from the pelvis. At this point, the patient was draped in the usual sterile fashion. Assessment of the spinal anesthetic was found to be unsatisfactory and the patient was transitioned into a joint general anesthetic. With general anesthesia in place, Pfannenstiel skin incision was made and carried down to the underlying fascia. The fascia was incised in the midline and extended bluntly laterally. The rectus muscles were identified split in the midline and bluntly entered into the peritoneum. The peritoneum was then stretched to the point that a bladder blade could be inserted. A low transverse uterine incision was made above the aspect of the apex of the bladder. The vertex was deep within the pelvis. Shoulders were present at the uterine incision site. Fluid was still clear but somewhat cloudy. The vertex was delivered through the incision with gentle upward traction of the vertex. Vertex was delivered through the incision. There was no evidence of nuchal cord. The shoulders were followed without difficulty. Three-vessel cord was noted clamped x 2 and cut and the infant was handed off to the waiting medical observer. At this point cord blood sample and segment for cord gases were obtained. The placenta was then manually expressed from the uterus and the uterus exteriorized and cleared of all clot and debris. There was noted to be a deep right sulcus laceration from the right apex of the incision to just above the cervix. In light of the extension, and some brisk bleeding, 1 g of TXA was administered. Ring forceps and Jones clamps were used to identify the apex of the extension on the right-hand side. 0 Monocryl was used to suture the right extension back up to the aspect of the lower uterine incision. The remainder of the uterine incision was closed using 0 Monocryl suture again in a running locked fashion. On reinspection of that right side, there was noted to be 2 vessels that were arterial in nature which were oversewn with [id number] suture. An [place] stitch was placed to achieve hemostasis. At this point, a second layer of 0 Monocryl suture was used in an imbricating fashion. At this point, the abdomen was irrigated with copious amounts of normal saline. The uterus and was then returned to the abdomen. The entirety of the uterine incision was inspected again. Again on the right extension there was noted to be 1 vessel which was not hemostatic. A [id number] suture was used to achieve hemostasis. Abdomen was again irrigated with copious amounts of normal saline. The incision was inspected and after significant period of time there was no evidence of ongoing bleeding. At this point, the fascial incision was closed using 0 Vicryl suture in a running fashion. Subcutaneous tissue was irrigated with copious amounts of normal saline. The skin edge was then reapproximated with 4-0 undyed Monocryl in a subcuticular fashion. Steri-Strips and sterile dressing were placed. Patient was taken the postanesthesia care unit in stable condition with a Miranda catheter draining slightly blood-tinged urine. Blood-tinged urine was present prior to delivery. There was no increase in coloration. Qualitative blood loss: 1400 cc Complications: Extension of the uterine incision at the right aspect. Oversewn, [place] stitch, hemostasis achieved Fluids: Crystalloid per anesthesia Findings: Delivery of viable male infant. Normal-appearing tubes, ovaries, uterus. Uterine incision with extension near to the cervix, right side. Pathology: Placenta for examination.
[2024-10-25] MEDS: HYDROmorphone 2 MG/ML SYR IVP ×2 (10:37→10:53)
--- NOTE | 2024-10-25 11:14 | W.ANESPOSTOP ---
Postoperative Evaluation Date, Time and Location Date Performed: 10/25/24 Time Performed: 11:00 Patient Location: PACU Vital Signs Most Recent Imported Vital Signs: Most Recent Vital Signs Temp Pulse Resp BP Pulse Ox 37.2 C 83 13 127/73 94 10/25/24 10:37 10/25/24 10:41 10/25/24 10:41 10/25/24 10:41 10/25/24 10:41 Pain Score Most Recent Pain Score: Most Recent Pain Score Pain Level 10 10/25/24 10:37 Assessment Mental Status: Awake (Alert & Oriented to Patient Baseline) Airway and Respiratory Function: Patent airway with normal (patient baseline) respiratory exam Cardiovascular Function: Hemodynamically Stable Hydration Status: Adequately Hydrated Nausea & Vomiting: No Nausea or Vomiting Pain: Pain is Moderate or Severe Postoperative Pain Management: Pain being addressed with medication Peripheral Nerve Block: Patient did not receive a nerve block
[2024-10-25] MEDS: Ketorolac 15 MG/ML VIAL IVP ×2 (14:21→20:25)
[2024-10-25] MEDS: Docusate Sodium 100 MG CAP PO (14:22)
[2024-10-25 15:54] LABS: HCT 28.9 % (36.0-46.0); HGB 9.7 g/dL (11.2-15.7); MCH 30.6 pg (27.0-33.0); MCHC 33.6 % (32.0-36.0); MCV 91 fL (80-95); MPV 10.2 fL (8.0-11.0); Platelet Count 190 10^3/uL (130-400); RBC 3.17 10^6/uL (3.93-5.22); RDW 13.8 % (11.7-14.6); RDW-SD 45.7 fL
[2024-10-25 16:04] LABS: Abs Immature Grans 0.00 10^3/uL (0.0-0.06); Immature Grans % 0.0 %
[2024-10-25 16:05] LABS: RBC Morphology Normal
[2024-10-25 16:07] LABS: WBC 28.19 10^3/uL (4.4-10.8)
--- NOTE | 2024-10-25 16:27 | W.PM.OBPNV1 ---
Date of service: 10/25/24 Time of Service: 16:27 Assessment and Plan Assessment and plan (1) Category II heart rate tracing during labor and delivery: Status: Acute (2) Status post primary low transverse section: Status: Acute Assessment and plan: G0 status post primary after arrest of labor and arrest of descent. Intraoperatively had 1400 cc quantitative blood loss with appropriate drop in hemoglobin. She also has an elevated white blood cell count with rupture of membranes. Than 12 hours. She has the appropriate surgical site infection prophylaxis. She is afebrile we will continue to monitor. She will have a CBC in the morning. She will have an opportunity to debrief at the delivery and Exam Physical Exam Vital signs: Temp Pulse Resp BP Pulse Ox 98.6 F 92 H 17 113/55 L 97 10/25/24 13:20 10/25/24 13:35 10/25/24 11:01 10/25/24 13:35 10/25/24 13:35 Vital Signs Reviewed: Yes Narrative: Elevated WBC, Appropriate HGB drop with 1400 ml blood loss Constitutional Constitutional: no acute distress Respiratory Exam Respiratory Exam: Normal Cardiovascular Exam Cardiovascular Exam: Normal Abdominal Exam Abdomen: Tender Fundal Exam Fundus: Below Umbilicus and Firm Extremities Exam Extremity Exam: Normal; negative Calf Tenderness Results Hemoglobin/Hematocrit: Hgb 9.7 g/dL (11.2-15.7) L D 10/25/24 15:45 Hct 28.9 % (36.0-46.0) L 10/25/24 15:45 Abnormal Lab Findings: Abnormal Labs 10/25/24 15:45 WBC 28.19 H* RBC 3.17 L Hgb 9.7 L D Hct 28.9 L Absolute Neutrophils 25.65 H Absolute Lymphocytes 0.56 L Absolute Monocytes 1.97 H
[2024-10-25] MEDS: Normal Saline Flush 10 ML SYR IVP (20:26)
[2024-10-26] VITALS (7 sets, daily range): BP systolic 100–122; BP diastolic 58–71; PULSE 63–87; RESP 16–18; TEMP 36.6–37.1; O2SAT 95–100
[2024-10-26] MEDS: Acetaminophen 325 MG TAB 650 MG PO ×6 (01:05→23:40)
[2024-10-26] MEDS: Docusate Sodium 100 MG CAP PO ×2 (01:05→19:46)
[2024-10-26] MEDS: Ketorolac 15 MG/ML VIAL IVP ×2 (02:21→08:01)
[2024-10-26 06:41] LABS: Abs Immature Grans 0.11 10^3/uL (0.0-0.06); HCT 26.0 % (36.0-46.0); HGB 8.6 g/dL (11.2-15.7); Immature Grans % 0.6 %; MCH 30.4 pg (27.0-33.0); MCHC 33.1 % (32.0-36.0); MCV 92 fL (80-95); MPV 10.5 fL (8.0-11.0); Platelet Count 195 10^3/uL (130-400); RBC 2.83 10^6/uL (3.93-5.22); RDW 14.0 % (11.7-14.6); RDW-SD 46.9 fL; WBC 19.29 10^3/uL (4.4-10.8)
--- NOTE | 2024-10-26 07:45 | W.PM.OBPNV1 ---
Date of service: 10/26/24 Time of Service: 07:45 Assessment and Plan Assessment and plan (1) Status post primary low transverse section: Status: Acute Assessment and plan: Postop day 1 status post primary low-transverse section for arrest of descent and category 2 heart rate tracing. Overall doing well. Ambulate today. Pain control. Work on breast-feeding. Circumcision has been requested. Will defer until tomorrow, or shortly prior to discharge. All questions answered (2) Arrested labor: Status: Acute Subjective Subjective Interval history: Patient seen this morning. Overall doing well. Pain is well-controlled. She has been eating well. No flatus yet. She has been up to the chair. All questions were answered. Events of the delivery reviewed. Patient would like her placenta. Will attempt to retrieve so she can take at home. Patient comments: No complaints Patient's Mood: Appropriate baby status: Doing well, Nursing well, Rooming in and Strong Bonding Observed Exam Physical Exam Vital signs: Temp Pulse Resp BP Pulse Ox 97.9 F 75 16 100/58 L 97 10/26/24 05:30 10/26/24 05:30 10/26/24 05:30 10/26/24 05:30 10/26/24 05:30 Vital Signs Reviewed: Yes Narrative: Vital signs are stable. Patient has been afebrile. Appropriate drop in hemoglobin to 8.6. White count normalizing at 19 down from 28. Neutrophils also diminished. Constitutional Constitutional: no acute distress HEENT Exam HEENT Exam: Normal Respiratory Exam Respiratory Exam: Normal Cardiovascular Exam Cardiovascular Exam: Normal Abdominal Exam Abdomen: Tender Fundal Exam Fundus: Below Umbilicus and Firm Extremities Exam Extremity Exam: Normal and Edema (1+ bilateral); negative Calf Tenderness Psychiatric Exam Psychiatric Exam: Normal Results Hemoglobin/Hematocrit: Hgb 8.6 g/dL (11.2-15.7) L 10/26/24 05:58 Hct 26.0 % (36.0-46.0) L 10/26/24 05:58 Abnormal Lab Findings: Abnormal Labs 10/25/24 10/26/24 15:45 05:58 WBC 28.19 H* 19.29 H RBC 3.17 L 2.83 L Hgb 9.7 L D 8.6 L Hct 28.9 L 26.0 L Absolute Neutrophils 25.65 H 15.84 H Absolute Lymphocytes 0.56 L Absolute Monocytes 1.97 H 1.16 H
[2024-10-26] MEDS: Normal Saline Flush 10 ML SYR IVP (08:02)
[2024-10-26] MEDS: Ibuprofen 600 MG TAB PO ×2 (14:11→19:46)
[2024-10-27] MEDS: Ibuprofen 600 MG TAB PO ×3 (04:30→19:15)
[2024-10-27 05:00] VITALS: BP 105/71; PULSE 65; RESP 17; TEMP 37; O2SAT 98
--- NOTE | 2024-10-27 05:58 | W.PM.OBPNV1 ---
Date of service: 10/27/24 Time of Service: 05:59 Assessment and Plan Assessment and plan (1) Headache after spinal puncture: Status: Acute Assessment and plan: Pt is POD#2 s/p PCS for arrest disorder. She has a headache seems consistent with a spinal headache. She is anemic with a significant drop in Hb but she has no other associated sxms, has previously been ambulating without difficulty and her vitals are stable. Will request anesthesia consult. Subjective Subjective Interval history: Pt reports a headache that is worse when she sits up or stands. She says she has had it since delivery but it is worse in the am. She says right now her headache is a 6/10. her incisional pain is only 2/10. She is taking ibuprofen and tylenol for pain management. She denies visual changes. She has had a few moments of feeling a little dizzy but nothing persistent or worsening. She is eating ok. Minimal bleeding. Exam Physical Exam Vital signs: Temp Pulse Resp BP Pulse Ox 98.6 F 65 17 105/71 98 10/27/24 05:00 10/27/24 05:00 10/27/24 05:00 10/27/24 05:00 10/27/24 05:00 Vital Signs Reviewed: Yes Constitutional Constitutional: no acute distress and cooperative Detailed HEENT Exam Head: Present normocephalic and atraumatic Respiratory Exam Respiratory Exam: Normal Extremities Exam Extremity Exam: Edema (trace) Detailed Neurological Exam Neurological: Present alert, oriented X3 and CN II-XII intact Results Hemoglobin/Hematocrit: Hgb 8.6 g/dL (11.2-15.7) L 10/26/24 05:58 Hct 26.0 % (36.0-46.0) L 10/26/24 05:58 Abnormal Lab Findings: Abnormal Labs 10/25/24 10/26/24 15:45 05:58 WBC 28.19 H* 19.29 H RBC 3.17 L 2.83 L Hgb 9.7 L D 8.6 L Hct 28.9 L 26.0 L Absolute Neutrophils 25.65 H 15.84 H Absolute Lymphocytes 0.56 L Absolute Monocytes 1.97 H 1.16 H
[2024-10-27 07:45] VITALS: BP 109/71; PULSE 74; RESP 16; TEMP 36.8; O2SAT 97
[2024-10-27] MEDS: Acetaminophen 325 MG TAB 650 MG PO ×3 (07:57→20:07)
[2024-10-27] MEDS: Docusate Sodium 100 MG CAP PO ×2 (07:58→19:15)
--- NOTE | 2024-10-27 08:38 | PDOC.ANES ---
Date of service: 10/27/24 Time of Service: 08:39 Anesthesia Note Report Anesthesia Note: Pt. is POD-2 for . Yesterday she woke and had a headache, worse in the morning, and postural. I was asked to see her today. This morning she is laying in bed, appearing comfortable able to have conversation and smiling. She states her headache seems worse yesterday morning and again this morning and worsens to 6/10 when sitting or standing. She also complains of stiff neck/muscle ache, tinnitus at times as well as muffled hearing yesterday that has improved today. She is able to perform ADL's. We discussed her symptoms and given mild to moderate symptoms, we will treat this with conservative measures to include hydration, limiting weight lifted, as well as Tylenol and Ibuprofen. We also discussed that she could take an OTC caffeine in the amount of 300-500mg 2x/day. We did discuss if symptoms worsen or headache becomes severe we could try a SPG block or a blood patch if needed. She will reach out if symptoms worsen or she has any concerns, otherwise will continue conservative management until symptoms improve which should be somewhere between 3 and 7 days.
[2024-10-27] MEDS: Ondansetron O.D.T. 4 MG TABEF PO (11:48)
[2024-10-27] MEDS: Methocarbamol 500 MG TAB PO ×2 (13:33→19:16)
[2024-10-27 13:35] VITALS: BP 113/73; PULSE 65; RESP 16; TEMP 36.7; O2SAT 96
[2024-10-27 16:00] VITALS: BP 122/73; PULSE 63; RESP 16; TEMP 36.8; O2SAT 97
[2024-10-27] MEDS: FERRIC CARBOXYMALTOSE 750 MG in Normal Saline 250 ML 1000 MG IVPB (16:36)
[2024-10-27] MEDS: Normal Saline Flush 10 ML SYR IVP ×2 (17:00→22:26)
--- NOTE | 2024-10-27 19:26 | NUR.NOTE ---
Nursing Note: Pt is currently. Chery in with pt giving tips and answering pt questions
[2024-10-27 20:00] VITALS: BP 116/74; PULSE 64; RESP 18; TEMP 37.1; O2SAT 98
--- NOTE | 2024-10-27 21:30 | W.PM.PROGNOT ---
Date of Service Date of service: 10/27/24 Time of Service: 13:00 Assessment and Plan Assessment and plan (1) Status post primary low transverse section: Status: Acute Assessment and plan: 29 yo G1 now P1001 s/p 41 wk LTCS complicated by right sided extension ? Rh+/rubella immune/VZV immune/GBS negative ? complicated by marginal cord insertion; patient to be pescatarian ? Intrapartum course complicated by arrest of descent at complete ? complicated by right sided extension of the hysterotomy and 1400 cc blood loss ? course complicated by acute blood loss anemia and multifactorial headache (spinal/anemia/musculoskeletal) ? Patient is ambulating without issue ? Urinating without issue ? Tolerating a regular diet ? Pain is well-controlled ? Breast-feeding ? Contraception: Pending ? Counseling on pelvic rest pending ? Counseling on addictive potential of narcotics and prescriptions pending ? Discharge planning: Anticipate tomorrow morning (10/28) (2) Acute blood loss anemia: Status: Acute Assessment and plan: Hemoglobin decreased from 12.7 predelivery to 8.6 postdelivery. Possible contributor to headache, but no symptoms of hemodynamic instability. Received 750 mg of Venofer the afternoon of 10/27/2024. (3) Headache disorder: Status: Acute Assessment and plan: Headache likely multifactorial: Positional qualities are highly suspicious for spinal headache. There are notable musculoskeletal contributions which were improved with indirect osteopathic techniques and Robaxin. Given the precipitous drop in her hemoglobin pre and postdelivery, this could be a contributing factor as well. Patient has received a dose of IV iron. Subjective Subjective Interval history since last seen: 29 yo G1 now P1001 s/p 41 wk LTCS performed 10/25/2024 complicated by right sided extension. Patient was having difficulties with a positional headache thought to be a spinal headache this morning. She was assessed by anesthesia and counseled on conversative interventions. Throughout the later part of the morning she became nauseous and had an episode of emesis improved with Zofran. I went in to assess her; she denied fevers / chills, worsening of her pain, heavy bleeding, though her headache was disruptive and she complained of a shooting pain most notably along the right side of her neck. A physical exam identified considerable trigger points along the right levator scapula, which were addressed with a series of indirect osteopathic techniques. Patient was also prescribed Robaxin. We discussed IV hydration if she was still nauseous versus oral; patient stated that the Zofran worked well enough that she wanted to pursue oral hydration. We also discussed the potential for her anemia to be a contributing factor. We discussed oral iron versus iron infusions versus blood transfusion. Patient ultimately opted for IV iron. A Venofer injection was ordered and administered. Later in the afternoon is found to be doing very well. She is noted to be ambulating around the room and reports that her headache is improved (though not fully resolved). She is tolerating a regular diet. She is urinating without issue. Her pain is appropriately controlled. Exam Narrative Exam Narrative: General: Well-nourished female; this morning, patient was found sitting up in bed talking with friends and family but was notably uncomfortable and tearful. Later in the afternoon, following the above-noted interventions,Ms. Roman was found appearing notably better without overt evidence of distress tending to the needs of her baby without issue. HEENT/back: Tension noted along the left trapezius. Series of trigger points is noted along the right levator scapula. No evidence of first rib pathology. Cervical traction exacerbates patient's headache. Pulmonary: No evidence of respiratory distress Abdomen: Soft nondistended Extremities: Trace edema noted equally bilaterally; nonpitting Objective Last Vital Signs Temp 98.8 F 10/27/24 20:00 Pulse 64 10/27/24 20:00 Resp 18 10/27/24 20:00 BP 116/74 10/27/24 20:00 Pulse Ox 98 10/27/24 20:00 Time Spent with Patient Time Spent with Patient: >50 minutes Time was spent: preparing to see the patient(eg.review tests), obtaining and/or reviewing separately otained hiistory, ordering medications,tests, procedures, referring, communicating with other health healthcare advisory services manager, indepentently interpreting results, counseling the patient, care coordination and other (Performing indirect Osteopathic techniques )
[2024-10-27] MEDS: Ondansetron 4 MG/2 ML VIAL IVP (22:26)
[2024-10-28] MEDS: Methocarbamol 500 MG TAB PO ×3 (00:08→10:18)
[2024-10-28] MEDS: Acetaminophen 325 MG TAB 650 MG PO ×3 (00:08→10:18)
[2024-10-28 00:28] VITALS: BP 111/66; PULSE 57; TEMP 36.4
[2024-10-28] MEDS: Ibuprofen 600 MG TAB PO ×2 (02:57→09:02)
--- NOTE | 2024-10-28 04:49 | W.PM.OBHPL1 ---
OB-HPI Labor/Delivery History of Present Illness Reason for Visit: Induction ROLAND Calculator Estimated Delivery Date Method WG Current Estimate 10/14/24 LMP (Certain) Other Estimates 10/15/24 Ultrasound #1 Infant Delivery Date-Baby A 10/25/24 41w 4d History of Present Expected Delivery Route/Plan - CNM FOB/ - Jonathan Durant (1st child) BB yes to circ Desires unmedicated , use ball, shower, walking, tub GBS negative @ 36 wks Jonathan for support. prefers no induction Specific Issues/Plan 1. cfDNA low risk, SMA/CF carrier negative 2. Pap due 07/2024- pt desires to be done 3. pescetarian 4. Marginal cord insertion- 32 week growth US- ARIANNA 13, EFW 72 %ile. 5. RUQ pain - gallbladder sludge by US 01/2024, consider repeat if symptoms persist. PFSH All Active Problems (Updated 10/27/24 @ 21:53 by Jaye Ivy DO) Headache disorder (Acute) Acute blood loss anemia (Acute) Headache after spinal puncture (Acute) Status post primary low transverse section (Acute) PMS (premenstrual syndrome) (Acute) anxiety and feels overwhelm Medical History (Updated 10/27/24 @ 21:53 by Jaye Ivy DO) Arrested labor Category II heart rate tracing during labor and delivery Pleomorphic adenoma of parotid gland Anxiety Surgical History (Updated 10/25/24 @ 16:29 by Jacqueline Culp DO) Benign parotid tumor Removed Family History (Updated 04/07/24 @ 09:35 by Kyra Anthony CNM) Sister Hyperlipidemia Paternal Grandmother Diabetes T2DM Father Cancer Father Diabetes T1DM Social History Smoking/Tobacco Use Status: Never Second Hand Exposure: No Smoking risk assessment performed?: Yes Alcohol Intake: current Drug use: Never Substance use type: does not use Household members: spouse Sexually active: Yes Do you think of yourself as: straight/heterosexual Current gender identity: female What is your relationship status?: Panel score (0-1 are the most socially isolated patients): 1 What type of physical activity do you participate in: regular exercise Duration: 30-45 minutes/day Frequency: 5-6 times per week Seatbelt use: always Helmet use: Yes Drive intox or ride w/intox dinkey driver: No Do you feel safe at home: Yes Do you feel safe in your relationship?: Yes Female Reproductive History Menstrual Age of Menarche: 10 Duration of menses: 6-7 days control method: none History History 2 Para 0 Hx # Term Pregnancies 0 Multiple births 0 Hx # Pregnancies 0 Ectopic pregnancies 0 AB induced 1 Hx Number of Living Children 0 AB spontaneous 0 Past Pregnancies Del. Date GA/Weeks # Preg Succ Route Wgt Sex Labor Lgth Anesthesia Location Prov Complic 11/04/23 7 No No Meds Allergies and Home Medications Allergies Allergy/AdvReac Type Severity Reaction Status Date / Time No Known Allergies Allergy Verified 10/19/24 14:14 Home Medications ?Medication ?Instructions ?Recorded ?Confirmed ?Type vitamin#30 30 mg iron-10 2 cap PO QDAY 10/27/23 10/26/24 History mg iron-folic acid 1 mg-omg3 capsule magnesium 250 mg tablet 250 mg PO DAILY PRN 05/05/24 10/26/24 History Exam Physical Exam Vital signs: Temp Pulse Resp BP Pulse Ox 97.6 F 57 L 18 111/66 98 10/28/24 00:28 10/28/24 00:28 10/27/24 20:00 10/28/24 00:28 10/27/24 20:00 Detailed Labor and Delivery Exam Barton Score: Cervical Points Exam 0 1 2 3 Dilation Closed 1-2cm 3-4 cm 5-6cm Effacement 0-30% 40-50% 60-70% 80% Consistency Firm Medium Soft Station -3 -2 -1,0 +1,+2 Position Posterior Mid Anterior Fetus A Date of Membrane Rupture: 10/23/24 Time of Membrane Rupture: 17:59 Results Results Group Beta Strep: Negative Blood Type: A+ Rubella Status: Immune Varicella Immunity: Immune Abnormal Lab Findings: Abnormal Labs 10/25/24 10/26/24 15:45 05:58 WBC 28.19 H* 19.29 H RBC 3.17 L 2.83 L Hgb 9.7 L D 8.6 L Hct 28.9 L 26.0 L Absolute Neutrophils 25.65 H 15.84 H Absolute Lymphocytes 0.56 L Absolute Monocytes 1.97 H 1.16 H Risk Assessment Risk for Shoulder Dystocia Historical/Initial OB: NEGATIVE FOR: Pelvic Abnormality, Pre- BMI>30, Previous Shoulder Dystocia or Previous Macrosomia 36 Weeks: NEGATIVE FOR: Current Gestational DM, EFW>4500gms or Maternal Weight Gain>40lbs 40 Weeks: POSTIVE FOR: Post Dates; NEGATIVE FOR: EFW> 4500 gms or Maternal Weight Gain >40lb Increased Risk?: No Delivery Plan @ 36wks: Delivery Plan @ 40 wks: Risk for Pre-Eclampsia Yes, if one or more: NEGATIVE FOR: Hx Pre-E/Gest HTN, Chronic HTN, Multiple Gestation, Pre-gestational DM, Renal Disease, Systemic Lupus or APA Syndrome Yes, if 2 or more: POSITIVE FOR: Nulliparity; NEGATIVE FOR: Age>= 35 yrs, >10yr btwn pregnancies, BMI>30, ethinicty, Mother/Sister w/ Pre-E or Previous IUGR Risk for Post- Hemorrhage Initial: NEGATIVE FOR: Multiple Gestation, Previous PPH, Known Clotting Deficiency, Grand Multiparity or Anticoagulation 36 Weeks: NEGATIVE FOR: Anemia, hgb<10, Low platelets(thrombocytopenia), Gestational HTN or Pre-E, Polyhydraminios or EFW>4500gms 40 Weeks: NEGATIVE FOR: Anemia, hgb<10, Low platelets (thrombocytopenia), Gestation HTN or Pre-E, Polyhydraminios or EFW>4500gms Counseled re: Active Management: Yes
[2024-10-28 08:08] VITALS: BP 111/67; PULSE 57; RESP 16; TEMP 36.7; O2SAT 96
[2024-10-28] MEDS: Ondansetron 4 MG/2 ML VIAL IVP (09:02)
[2024-10-28] MEDS: Normal Saline Flush 10 ML SYR IVP (09:02)
--- NOTE | 2024-10-28 15:23 | DSE_ITS ---
Date of service: 10/28/24 Time of Service: 15:23 DS: Diagnosis Discharge Diagnosis (1) Status post primary low transverse section: Status: Acute (2) Acute blood loss anemia: Status: Acute (3) Headache disorder: Status: Acute Discharge Plan Disposition Patient Disposition: Home Condition: Good Discharge Details Reason For Visit: Induction Admit Date/Time: 10/23/24 18:15 Admit Provider: Abeba Cartagena Attending Provider: Abeba Cartagena Primary Care Provider: Unknown,Unknown Hospital Course Hospital Course: 29 yo G1 now P1001 presented to [facility] L&D on the evening of 10/23/2024 at 41 weeks as dated by LMP equal to 8-week ultrasound ([facility] 10/13/2024) for a scheduled induction of labor. Her was complicated by a marginal cord insertion; records also suggest a pre-existing history of anxiety. She is noted to have a negative GBS status. She underwent cervical ripening with p.o. Cytotec as well as cervical Miranda. She made good progress to 6 cm and was ruptured to clear fluid sometime around 6 PM on 10/24/2024. She received an epidural and progressed on her own without augmentation. She reached complete at 07:20 am on 10/25/2024 and began pushing. The on-call Fingerer was consulted to review the strip given concerns surrounding changes in the heart tones and possible cephalopelvic disproportion. After a failed trial of pushing, a decision was made to proceed with for arrest of descent. Her epidural was removed due to inadequate coverage which slowly developed over the course of her labor, and spinal analgesia was attempted, but was ultimately found to be an adequate when tested; therefore, Ms. Roman underwent general anesthesia with rapid induction. She had a primary low-transverse section on the morning of 10/25/2024. She was noted to have a right sided extensi on of the hysterotomy as well as a 1400 cc blood loss during her case. On the morning of 10/27/2024, Ms. Roman is noted to have developed headache that was suspicious for a spinal headache. She was assessed by anesthesia and counseled on conservative interventions including rest, hydration, Tylenol/Motrin, and caffeine; they also discussed the potential for a blood patch if and when necessary. Later that afternoon, I physically assessed the patient and identified a musculoskeletal component to her neck pain which was eased with indirect osteopathic techniques as well as Robaxin. Given the precipitous drop in the patient's hemoglobin from predelivery (starting hemoglobin 12+) to postdelivery (postop hemoglobin 9+), and the potential for exacerbation of her headache due to anemia, we discussed consideration of IV iron versus blood transfusion. Patient ultimately desired and received IV iron in the form of 750 mg of Venofer administered the afternoon of 10/27/2024. By that evening, while her symptoms were not fully resolved, Ms. Roman was able to ambulate and reasonably function. She was monitored overnight and found to be stable the next morning. This morning, 10/28/2024, Ms. Roman is found to be doing well. She is found resting in her bed with her baby. Her symptoms are stable and her pain is appropriately controlled. Her lochia is appropriate, and she is tolerating a regular diet. She is urinating without issue. She exhibits notable sadness recounting her labor course, and both she and her were counseled extensively on signs and symptoms of, as well as the importance of early recognition of depression; she was strongly advised to reach out with any concerns. She is successfully breast-feeding and is uncertain of contraceptive interest at this time. She was counseled on the importance of pelvic rest for a full 8 weeks and/or until medical clearance to reduce the chances of infection as well as the risk of short-interval . She was also counseled on the addictive potential of narcotics and encouraged to use them sparingly; she was also advised to discard of any unused portions of her medication. A message was sent to scheduling for coordination of her 1 week incision check with the obstetricians as well as setting her up for her next dose of Venofer to be administered 1 week after the last. She was advised to have a low threshold for seeking immediate medical evaluation if any concerns arise. Home Meds and New Rx's Prescriptions: New methocarbamol 500 mg tablet 500 mg PO Q8H PRNQty: 20 0RF oxycodone 5 mg capsule 5 mg PO Q8H 5 Days Qty: 15 0RF docusate sodium [Colace] 100 mg capsule 100 mg PO BID PRN10 Days Qty: 20 0RF ibuprofen 600 mg tablet 600 mg PO Q6H 10 Days Qty: 40 0RF Lactobacillus acidophilus 500 million cell Capsule 500 mmu cells PO BID 30 Days Qty: 60 0RF No Action PNV #[id number] 30 mg iron-10 mg iron-1 mg capsule 2 cap PO QDAY Patient Comments: Takes 2 cap daily magnesium 250 mg tablet 250 mg PO DAILY PRN Discharge Instructions Instructions: , Fitness, Control After Having a Baby, Spinal headache, Taking Care of Yourself After You Have a Baby Additional Instructions: Ms. Roman will need follow up in one week with [facility] Obstetricians for a wound check; this should be coordinated so she can receive a second dose of Venofer the same day. ? Eat a well-rounded diet ? Ambulate regularly and engage in light activity while avoiding repeated heavy lifting (over 10 pounds) ? Take your medications as prescribed ? Please be sure to attend your follow-up visits ? If you have an incision, be sure to keep it clean and dry using simple soap and water; avoid scrubbing to avoid damage to suture ? If you have been prescribed narcotics such as tramadol or oxycodone or Corona, please note these medications have an addictive potential and should be used sparingly.? Please discard of any leftover medication either with your local pharmacy or by flushing the medication.? Do not share these medications with other individuals, and have a low threshold for seeking immediate medical evaluation if you experience any sleepiness, headaches, or any other concerns while using these medications. ? Please do not insert anything vaginally, including but not limited to, tampons, douching, or sexual intercourse, for a full 8 weeks and/or until you are medically cleared. ? If you have any concerns including fevers/chills, lightheadedness, visual changes, persistent headaches unresponsive to Tylenol, persistent nausea /vomiting, persistent abdominal pain, bruising and or leakage from your incision sites, excessive vaginal bleeding, or any other concerns, please have a low threshold for seeking immediate medical evaluation and/or reaching out to our clinic at [phone]. ? If you find yourself having crying spells you cannot explain, loss of appetite, persistent inability to sleep, lack of bonding with your baby, and/or general and persistent sadness, please feel free to reach out to our clinic immediately at [phone]. Stand Alone Forms: BC Instructions, BC Discharge Instruc Referrals: Jaye Ivy DO [OSTEOPATHIC DOCTOR, Obstetrics] Activity:: pelvic rest Equipment/Supplies:: No Equipment Needed Diet:: Normal Diet Discharge Orders Discharge Orders: Discharge Order (Routine); Ordered 10/28/24 Ordered By: Jaye Ivy Discharge Data Discharge Date/Time-TO BE ENTERED AT DEPARTURE: 10/28/24 13:00 OB:DS Summary Summary Episiotomy Description: None Laceration Description: None Laceration Extension: N/A Contraception Discussed Contraception Discussed: Yes, [place] Gender-Baby A: Male weight: 9 lb 1.681 oz Status at Discharge Functional status at discharge: independent ambulation Overall status at discharge: patient is progressing back to baseline Mental Status: mental status grossly normal Speech and Movement: speech and movement normal Mood: congruent mood Affect: other (congruent affect) Quality:SDOH Health Related Social Needs: Health related social needs risk of homeless Health related social needs details none Health related social needs details: none Exam Physical Exam Vital signs: Temp Pulse Resp BP Pulse Ox 98.1 F 57 L 16 111/67 96 10/28/24 08:08 10/28/24 08:08 10/28/24 08:08 10/28/24 08:08 10/28/24 08:08 Narrative: General: Well-nourished female in no immediate distress Pulmonary: No overt respiratory distress Abdomen: Soft, nondistended, fundus firm and low. Incision is covered in mL of flex dressing; noted to be clean and without overt evidence of oozing or bleeding. Area under the mL of Flex dressing is nontender. Extremities: Trace edema noted equally bilaterally Affect: Tearful but responsive and cooperative PFSH All Active Problems (Updated 10/27/24 @ 21:53 by Jaye Ivy DO) Headache disorder (Acute) Acute blood loss anemia (Acute) Headache after spinal puncture (Acute) Status post primary low transverse section (Acute) PMS (premenstrual syndrome) (Acute) anxiety and feels overwhelm Medical History (Updated 10/27/24 @ 21:53 by Jaye Ivy DO) Arrested labor Category II heart rate tracing during labor and delivery Pleomorphic adenoma of parotid gland Anxiety Surgical History (Updated 10/25/24 @ 16:29 by Jacqueline Culp DO) Benign parotid tumor Removed Family History (Updated 04/07/24 @ 09:35 by Kyra Anthony CNM) Sister Hyperlipidemia Paternal Grandmother Diabetes T2DM Father Cancer Father Diabetes T1DM Social History Smoking/Tobacco Use Status: Never Second Hand Exposure: No Smoking risk assessment performed?: Yes Alcohol Intake: current Drug use: Never Substance use type: does not use Household members: spouse Sexually active: Yes Do you think of yourself as: straight/heterosexual Current gender identity: female What is your relationship status?: Panel score (0-1 are the most socially isolated patients): 1 What type of physical activity do you participate in: regular exercise Duration: 30-45 minutes/day Frequency: 5-6 times per week Seatbelt use: always Helmet use: Yes Drive intox or ride w/intox transit 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 Date GA/Weeks # Preg Succ Route Wgt Sex Labor Lgth Anesth esia Location [facility] 11/04/23 7 No No DS: Data Vitals/I&O Vitals and I&O: Vital Signs Temperature 98.1 F 10/28/24 08:08 Temperature Source Oral 10/28/24 08:08 Pulse 57 L 10/28/24 08:08 Pulse Rhythm Regular 10/28/24 08:08 Pulse 98 H 10/25/24 11:01 Respiratory Rate 16 10/28/24 08:08 Blood Pressure 111/67 10/28/24 08:08 Blood Pressure Mean 81 10/28/24 08:08 Pulse Oximetry 96 10/28/24 08:08 Respiratory End-tidal CO2 29 10/25/24 11:01 Oxygen Delivery Method Room Air 10/25/24 11:05 Oxygen Flow Rate 0 10/23/24 18:00 Pain Level 7 10/28/24 05:44 Comment tub temp is 99.1F 10/24/24 18:58
== END 2024-10-28 13:00 | disposition home or self-care (01) | DRG 787 ==
PROVIDERS: Obstetrics & Gynecology; Admitting Provider Advanced Practice Midwife; Visit Provider Advanced Practice Midwife
PROC: 10D00Z1 Extraction of Products of Conception, Low, Open Approach (ICD-10-PCS; CPT 59514; principal; 2024-10-25 08:15)
DX: O48.0 Post-term pregnancy (principal); D62 Acute posthemorrhagic anemia; Z37.0 Single live birth; O62.1 Secondary uterine inertia; O76 Abnormality in fetal heart rate and rhythm complicating labor and delivery; G97.1 Other reaction to spinal and lumbar puncture; Z3A.41 41 weeks gestation of pregnancy; O69.89X0 Labor and delivery complicated by other cord complications, not applicable or unspecified; O99.02 Anemia complicating childbirth; O67.8 Other intrapartum hemorrhage; O74.5 Spinal and epidural anesthesia-induced headache during labor and delivery
CPT/HCPCS: 59514; 59200; 36415; 82803; 85027; 86850; 86900; 86901; 85025; 88307; J0131; J0456; J0665; J0690; J1100; J1171; J1439; J1885; J2274; J2371; J2405; J2704; J3010; J3490

== ENCOUNTER 2024-10-29 12:04 | Observation (INO) | payer BC, SELFPAY ==
--- NOTE | 2024-10-29 12:18 | PDOC.ANES ---
Date of service: 10/29/24 Time of Service: 12:18 Anesthesia Note Report Anesthesia Note: Seen at bedside with partner and child, patient reports headache with N/V on ambulation or being upright. Feels better when lying down. Unable to tolerate fluids when upright, able to when lying down. Patient to be rehydrated here by Dr. Ivy; additionally zofran and IV/PO pain relief. If able to discharge home we will call tomorrow. If not I will be back to evaluate again today. Discussed the risks involved with EBP, answered questions. Emphasized oral hydration and added that caffeine can help but we might be out of that window (some literature states good only up to 24 hours). All questions answered, we will continue to monitor.
--- NOTE | 2024-10-29 12:30 | W.PM.HP.N ---
Date of service: 10/29/24 Time of Service: 12:30 Assessment and Plan Assessment and plan (1) Status post primary low transverse section: Status: Acute Assessment and plan: 29 yo G1 now P1001 s/p 41 wk PLTCS on 10/25/2024 (POD 4, now) for arrest of descent undergoing management for persistent nausea / vomiting - Baby boy Storm 8lbs 14 oz at - Rh+ / Rub I / VZV I / GBS neg ? complicated by marginal cord insertion; patient to be pescatarian ? Intrapartum course complicated by arrest of descent at complete ? complicated by right sided extension of the hysterotomy and 1400 cc blood loss ? course complicated by acute blood loss anemia and multifactorial headache (spinal/anemia/musculoskeletal) ? ? Contraception: Pending ? Counseling on pelvic rest complete ? Discharge planning: pending (2) Acute blood loss anemia: Status: Acute Assessment and plan: S/P 750 mg IV Venofer from 10/27/2024. Will be due for second dose 11/03/2024. (3) Headache after spinal puncture: Status: Acute Assessment and plan: Per anesthesia; moderate case. Continue pursuit of hydration, caffeine, rest, and conservative interventions. (4) Nausea and vomiting: Status: Acute Assessment and plan: Likely related to dehydration exacerbated by spinal headache, though lack of bowel sounds is concerning for a mild postop ileus; patient does state that she had a bowel movement this morning and it was without issue. Regardless, we will plan to treat nausea with Reglan and encourage progressive mobilization and mastication as tolerable. Will bolus with 500 mL LR via IV and run 150 cc's D5LR following olus. Ice water and Gatorade at beside. Will do an oral challange with progressive foods as permissible. CBC, CMP, and UA collected. History of Present Illness Narrative: 29 yo G1 now P1001 s/p 41 wk PLTCS on 10/25/2024 for arrest of descent, presented to labor and delivery, today, for routine weight check on her baby, when she was noted to be having nausea and vomiting. 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 States she felt a little better when she got home and lie down to rest, but she has already vomited twice this morning, and is not able to keep oral foods or liquids down. She has been trying to eat very small amounts of fruit and sip fluids steadily but is having difficulty. She denies fevers or chills, lightheadedness, chest pain, shortness of breath. She reports that her lochia is scant. She reports pain appropriate and consistent with recent denying any increases in pain or abnormal pain since delivery. She continues to have her headache, and she reports a, whooshing, sound in her right ear which she attributes to her spinal headache. She is breast-feeding without issue, and the breast-feeding does not exacerbate her symptoms. Review of Systems All systems reviewed & are unremarkable except as noted in HPI and below PFSH All Active Problems Nausea and vomiting (Acute) Headache disorder (Acute) Acute blood loss anemia (Acute) Headache after spinal puncture (Acute) Status post primary low transverse section (Acute) PMS (premenstrual syndrome) (Acute) anxiety and feels overwhelm Medical History Arrested labor Category II heart rate tracing during labor and delivery Pleomorphic adenoma of parotid gland Anxiety Surgical History Benign parotid tumor Removed Family History Sister Hyperlipidemia Paternal Grandmother Diabetes T2DM Father Cancer Father Diabetes T1DM Social History Smoking/Tobacco Use Status: Never Second Hand Exposure: No Smoking risk assessment performed?: Yes Alcohol Intake: current Drug use: Never Substance use type: does not use Household members: spouse Sexually active: Yes Do you think of yourself as: straight/heterosexual Current gender identity: female What is your relationship status?: Panel score (0-1 are the most socially isolated patients): 1 What type of physical activity do you participate in: regular exercise Duration: 30-45 minutes/day Frequency: 5-6 times per week Seatbelt use: always Helmet use: Yes Drive intox or ride w/intox 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 Date GA/Weeks # Preg Succ Route Wgt Sex Labor Lgth Anesthesia Location Prov Complic 11/04/23 7 No No Meds Allergies and Home Medications Allergies Allergy/AdvReac Type Severity Reaction Status Date / Time No Known Allergies Allergy Verified 10/19/24 14:14 Home Medications ?Medication ?Instructions ?Recorded ?Confirmed ?Type vitamin#30 30 mg iron-10 2 cap PO QDAY 10/27/23 10/26/24 History mg iron-folic acid 1 mg-omg3 capsule magnesium 250 mg tablet 250 mg PO DAILY PRN 05/05/24 10/26/24 History Lactobacillus acidophilus 500 500 mmu cells PO BID 30 days #60 10/28/24 Rx million cell capsule caps docusate sodium 100 mg capsule 100 mg PO BID PRN 10 days #20 caps 10/28/24 Rx (Colace) ibuprofen 600 mg tablet 600 mg PO Q6H 10 days #40 tabs 10/28/24 Rx methocarbamol 500 mg tablet 500 mg PO Q8H PRN #20 tabs 10/28/24 Rx oxycodone 5 mg capsule 5 mg PO Q8H 5 days #15 caps 10/28/24 Rx Exam Narrative Exam Narrative: General: Well-nourished female appears lethargic Pulmonary: No overt respiratory distress; clear to auscultation bilaterally Cardio: Regular rate and rhythm, no overt irregularities or murmurs Abdomen: Soft, nondistended. No bowel sounds appreciated in any of the 4 quadrants. No guarding even with deep palpation. No palpable liver angle. No evidence of pain with mid epigastric, right upper quadrant, right lower quadrant, left upper quadrant, left lower quadrant, or suprapubic palpation. Fundus is firm and low, and patient tolerates per day of fundus well. Incision is covered with a clean Mepilex dressing without evidence of leakage. She exhibits no evidence of tenderness when I palpate across the incision. Extremities: Trace edema noted equally bilaterally Psych: Mood and affect congruent Results Labs 10/29/24 12:07 10/29/24 12:07 Time Spent Time spent with Patient: 40-54 minutes Time was spent: preparing to see the patient(eg.review tests), obtaining and/or reviewing separately otained hiistory, ordering medications,tests, procedures, referring, communicating with other health memory care program resident, indepentently interpreting results, counseling the patient and care coordination
[2024-10-29 12:35] VITALS: BP 105/67; PULSE 57; RESP 16; TEMP 36.5; O2SAT 100
[2024-10-29] MEDS: Lactated Ringers 500 ML IV (12:59)
[2024-10-29 13:11] LABS: Abs Immature Grans 0.06 10^3/uL (0.0-0.06); HCT 30.0 % (36.0-46.0); HGB 9.7 g/dL (11.2-15.7); Immature Grans % 0.9 %; MCH 29.7 pg (27.0-33.0); MCHC 32.3 % (32.0-36.0); MCV 92 fL (80-95); MPV 9.3 fL (8.0-11.0); Platelet Count 255 10^3/uL (130-400); RBC 3.27 10^6/uL (3.93-5.22); RDW 13.0 % (11.7-14.6); RDW-SD 43.8 fL; WBC 6.60 10^3/uL (4.4-10.8)
[2024-10-29] MEDS: Metoclopramide 10 MG/2 ML VIAL IVP (13:23)
[2024-10-29 13:35] LABS: ALT 21 U/L (14-59); AST 18 U/L (15-37); Albumin 2.5 g/dL (3.4-5.0); Alkaline Phosphatase 103 U/L (46-116); Anion Gap 9.3 mmol/L (3-11); BUN 9 mg/dL (7-18); Bilirubin, Total 0.4 mg/dL (0.2-1.0); CO2 24.7 mmol/L (21.0-32.0); Calcium 8.4 mg/dL (8.5-10.1); Chloride 107 mmol/L (98-107); Estimated GFR 122.99 (mL/min/1.73m2); Glucose 87 mg/dL (74-106); Potassium 3.7 mmol/L (3.5-5.1); Sodium 141 mmol/L (136-145); Total Protein 6.0 g/dL (6.4-8.2)
[2024-10-29] MEDS: DEXTROSE 5%-LACTATED RINGERS 1,000 ML 150 ML IV (14:00)
--- NOTE | 2024-10-29 18:03 | W.PM.PROGNOT ---
Date of Service Date of service: 10/29/24 Time of Service: 18:03 Assessment and Plan Assessment and plan (1) Status post primary low transverse section: Status: Acute Assessment and plan: 29 yo G1 now P1001 s/p 41 wk PLTCS on 10/25/2024 (POD 4, now) for arrest of descent undergoing management for persistent nausea / vomiting - Baby boy Storm 8lbs 14 oz at - Rh+ / Rub I / VZV I / GBS neg ? complicated by marginal cord insertion; patient to be pescatarian ? Intrapartum course complicated by arrest of descent at complete ? complicated by right sided extension of the hysterotomy and 1400 cc blood loss ? course complicated by acute blood loss anemia and multifactorial headache (spinal/anemia/musculoskeletal) ? ? Contraception: Pending ? Counseling on pelvic rest complete (2) Nausea and vomiting: Status: Acute Assessment and plan: Reports feeling much better after IV and PO hydration. Tolerating regular foods and requesting discharge. Provided with a prescription for Reglan; instructed to take it q6 hours tomorrow, then prn after that. (3) Acute blood loss anemia: Status: Acute Assessment and plan: S/P 750 mg IV Venofer from 10/27/2024. Will be due for second dose 11/03/2024. (4) Headache after spinal puncture: Status: Acute Assessment and plan: Per anesthesia; moderate case. Continue pursuit of hydration, caffeine, rest, and conservative interventions. Subjective Subjective Interval history since last seen: Patient reports feeling much better; she still feels the headache when she sits up, but as long as she lies down resting, things feel ok. Her nausea is notably better, and she is requesting to go home. She has tolerated crackers, PO fluids, Gatorade, and a beagle. Exam Narrative Exam Narrative: General: Well-nourished female Pulmonary: No overt respiratory distress Abdomen: Soft, nondistended. Bowel sounds are much improved Extremities: Trace edema noted equally bilaterally Psych: Mood and affect congruent Objective Last Vital Signs Temp 97.7 F 10/29/24 12:35 Pulse 57 L 10/29/24 12:35 Resp 16 10/29/24 12:35 BP 105/67 10/29/24 12:35 Pulse Ox 100 10/29/24 12:35 Laboratory Results - last 24 hr 10/29/24 10/29/24 12:07 12:57 WBC 6.60 RBC 3.27 L Hgb 9.7 L Hct 30.0 L MCV 92 MCH 29.7 MCHC 32.3 RDW 13.0 Plt Count 255 MPV 9.3 Immature Gran % 0.9 Neutrophils % 68.3 Lymphocytes % 23.2 Monocytes % 5.3 Eosinophils % 2.0 Basophils % 0.3 Nucleated RBC % 0.0 Absolute Neutrophils 4.51 Absolute Lymphocytes 1.53 Absolute Monocytes 0.35 Absolute Eosinophils 0.13 Absolute Basophils 0.02 Sodium 141 Potassium 3.7 Chloride 107 Carbon Dioxide 24.7 Anion Gap 9.3 BUN 9 Creatinine 0.6 Est GFR (CKD-EPI 2020) 122.99 Glucose 87 Calcium 8.4 L Total Bilirubin 0.4 AST 18 ALT 21 Alkaline Phosphatase 103 Total Protein 6.0 L Albumin 2.5 L Time Spent with Patient Time Spent with Patient: 25-34 minutes Time was spent: preparing to see the patient(eg.review tests), obtaining and/or reviewing separately otained hiistory, ordering medications,tests, procedures, referring, communicating with other health respiratory care technician, indepentently interpreting results and counseling the patient
--- NOTE | 2024-10-29 21:43 | W.PM.DSUDISC ---
Date of service: 10/29/24 Discharge Plan Disposition Condition: Good Condition: Good Discharge Details Reason For Visit: Nausea, Vomiting Admit Date/Time: 10/29/24 12:04 Admit Provider: Jaye Ivy Attending Provider: Jaye Ivy Primary Care Provider: Unknown,Unknown Hospital Course Hospital Course: S/p section presented to L&D for weight of child. During weight check, patient was noted to be light-headed, nauseous, and dizzy. Admitted for IV fluids and antiemetics. Seen by anesthesia who did not feel this warranted a blood patch. Symptoms improved after rest, IV fluids, and Reglan. Patient was able to keep down orals. Discharged same day to home per request of patient with instructions for close follow up. Home Meds and New Rx's Prescriptions: Discontinued magnesium 250 mg tablet 250 mg PO DAILY PRN methocarbamol 500 mg tablet 500 mg PO Q8H PRNQty: 20 0RF oxycodone 5 mg capsule 5 mg PO Q8H 5 Days Qty: 15 0RF docusate sodium [Colace] 100 mg capsule 100 mg PO BID PRN10 Days Qty: 20 0RF ibuprofen 600 mg tablet 600 mg PO Q6H 10 Days Qty: 40 0RF Lactobacillus acidophilus 500 million cell Capsule 500 mmu cells PO BID 30 Days Qty: 60 0RF No Action Lactobacillus acidophilus 500 million cell capsule 500 mmu cells PO BID 30 Days Qty: 60 0RF magnesium 250 mg tablet 250 mg PO DAILY PRN (Reason: headaches) 30 Days Qty: 30 0RF Discharge Data Discharge Date/Time-TO BE ENTERED AT DEPARTURE: 10/29/24 18:15 DS: Diagnosis Discharge Diagnosis (1) Status post primary low transverse section: Status: Acute (2) Nausea and vomiting: Status: Acute (3) Acute blood loss anemia: Status: Acute (4) Headache after spinal puncture: Status: Acute
--- NOTE | 2024-11-01 07:38 | PDOC.ANES ---
Date of service: 10/31/24 Time of Service: 15:41 Anesthesia Note Report Anesthesia Note: I attempted to call Mable to follow-up on her course relating to her PDPH, my partner Em attempted 10/30 in the evening with no answer. I attempted the afternoon of this note with no answer and I did leave a voicemail. I will try her again today 11/01.
== END 2024-10-29 18:15 ==
PROVIDERS: Admitting Provider Obstetrics & Gynecology; Visit Provider Obstetrics & Gynecology
DX: O90.81 Anemia of the puerperium (principal); O89.4 Spinal and epidural anesthesia-induced headache during the puerperium; O99.345 Other mental disorders complicating the puerperium; F41.9 Anxiety disorder, unspecified; D62 Acute posthemorrhagic anemia; Z98.891 History of uterine scar from previous surgery; R11.2 Nausea with vomiting, unspecified; G97.1 Other reaction to spinal and lumbar puncture
CPT/HCPCS: 80053; 96360; 96361; 81003; 85025; G0378; J2765